=== PATIENT | male | born 1935 | race Caucasian/White ===

== ENCOUNTER 2020-11-14 05:34 | Emergency (ER) | payer MEDICARE, OTHER ==
--- NOTE | 2020-11-14 06:09 | EDM.PDOC ---
ED HPI GENERAL MEDICAL PROBLEM - General Chief Complaint: Genitourinary Problem Stated Complaint: CATHETER PLUGGED Time Seen by Provider: 11/14/20 05:50 Source of Information: Reports: Patient History Limitations: Reports: No Limitations - History of Present Illness INITIAL COMMENTS - FREE TEXT/NARRATIVE: This 85 yo male patient reports to the ED due to his urinary catheter being plugged. The patient reports he had a catheter placed on Monday due to gross hematuria and an expanded bladder. The patient reports he moved wrong and got the catheter pulled last night causing increased difficulties in draining his bladder. The patient reports he has an appointment with Dr. Buck on 12/09/20 in [place] for continued evaluation and management of his hematuria. The patient reports his bladder currently feels full and has had increased pain when sitting or lying down. The patient reports he has noticed increased comfort with standing. Onset: Today Duration: Hour(s):, Constant Location: Reports: Abdomen (lower abdominal pressure) Quality: Reports: Pressure Severity: Moderate Improves with: Reports: None Worsens with: Reports: None Context: Reports: Other Associated Symptoms: Reports: No Other Symptoms - Related Data Allergies Allergy/AdvReac Type Severity Reaction Status Date / Time No Known Allergies Allergy Unverified 11/04/20 08:00 Social & Family History - Tobacco Use Tobacco Use Status *Q: Former Tobacco User Used Tobacco, but Quit: Yes Month/Year Tobacco Last Used: 2004 - Caffeine Use Caffeine Use: Reports: Coffee - Recreational Drug Use Recreational Drug Use: No ED ROS GENERAL - Review of Systems Review Of Systems: Comprehensive ROS is negative, except as noted in HPI. ED EXAM, RENAL/ - Physical Exam Exam: See Below Exam Limited By: No Limitations General Appearance: Alert, WD/WN, Moderate Distress Eye Exam: Bilateral Eye: EOMI, Normal Inspection, PERRL Ears: Normal External Exam, Normal Canal, Hearing Grossly Normal, Normal TMs Nose: Normal Inspection, Normal Mucosa, No Blood Throat/Mouth: Normal Inspection, Normal Lips, Normal Teeth, Normal Gums, Normal Oropharynx, Normal Voice, No Airway Compromise Head: Atraumatic, Normocephalic Neck: Normal Inspection, Supple, Non-Tender, Full Range of Motion Respiratory/Chest: No Respiratory Distress, Lungs Clear, Normal Breath Sounds, No Accessory Muscle Use, Chest Non-Tender Cardiovascular: Normal Peripheral Pulses GI/Abdominal: Normal Bowel Sounds, Soft, Tender (lower abdomen) (Male) Exam: Other (Blood in the patient's catheter fluid would go into the catheter, but nothing would drain out after the flushing. ) Rectal (Males) Exam: Deferred Back Exam: Normal Inspection, Full Range of Motion, NT Extremities: Normal Inspection, Normal Range of Motion, Non-Tender, Normal Capillary Refill, No Pedal Edema Neurological: Alert, Oriented Psychiatric: Normal Affect, Normal Mood Skin Exam: Warm, Dry, Intact, Normal Color, No Rash Lymphatic: No Adenopathy Course - Vital Signs Last Recorded V/S: Last Vital Signs Temp 36.0 C L 11/14/20 05:45 Pulse 113 H 11/14/20 05:45 Resp 18 11/14/20 05:45 BP 163/87 H 11/14/20 05:45 Pulse Ox 97 11/14/20 05:45 Departure - Departure Time of Disposition: 06:24 Disposition: Home, Self-Care 01 Condition: Fair Clinical Impression: Gross hematuria, Urinary catheter (Nuñez) change required - Discharge Information *PRESCRIPTION DRUG MONITORING PROGRAM REVIEWED*: Not Applicable *COPY OF PRESCRIPTION DRUG MONITORING REPORT IN PATIENT CODY: Not Applicable Care Plan Goals: The patient was advised of the examination results during the visit. The patient's urinary catheter was replaced during the visit and was draining well. The patient was encouraged to follow-up with his primary care facility as needed. If the patient has any additional symptoms or concerns, the patient should either return to the emergency department or visit his primary care facility. Sepsis Event Note (ED) - Evaluation Sepsis Screening Result: No Definite Risk - Focused Exam Vital Signs: Vital Signs Temp Pulse Resp BP Pulse Ox 11/14/20 05:45 36.0 C L 113 H 18 163/87 H 97
== END 2020-11-14 06:30 | disposition home or self-care (01) ==
LOC: DL.ED 05:34
DX: R31.0 Gross hematuria (principal); Z46.6 Encounter for fitting and adjustment of urinary device; Z87.891 Personal history of nicotine dependence
CPT/HCPCS: 51702; 99282; 99283-25

== ENCOUNTER 2020-11-17 01:30 | Emergency (ER) | payer MEDICARE, OTHER ==
--- NOTE | 2020-11-17 02:04 | EDM.PDOC ---
ED HPI GENERAL MEDICAL PROBLEM - General Chief Complaint: Genitourinary Problem Stated Complaint: PLUGGED CATHETER Time Seen by Provider: 11/17/20 01:50 Source of Information: Reports: Patient History Limitations: Reports: No Limitations - History of Present Illness INITIAL COMMENTS - FREE TEXT/NARRATIVE: This 85 yo male patient reports to the ED with increased pressure in his lower abdomen and no urine output from his catheter. The patient was seen in the [facility] last week due to gross hematuria. The provider placed a catheter during that visit. The patient was seen near the end of the week due to his catheter being blocked (similar to today). During that visit, unsuccessful attempts were made to flush the catheter. Eventually, the catheter was replaced. The patient reports he did have about 1600 mL of urine out early yesterday morning, but really has not had anything out since that time. Onset: Today Duration: Constant Location: Reports: Abdomen Quality: Reports: Dull, Pressure Severity: Moderate Improves with: Reports: None Worsens with: Reports: None Context: Reports: Other Associated Symptoms: Reports: No Other Symptoms Penis Pain Score (Numeric/FACES): 1 - Related Data Allergies Allergy/AdvReac Type Severity Reaction Status Date / Time No Known Allergies Allergy Verified 11/14/20 06:07 Home Meds: Home Meds Cholecalciferol (Vitamin D3) [Vitamin D3] 400 unit PO DAILY 11/14/20 [History] Finasteride [Proscar] 5 mg PO DAILY 11/14/20 [History] Furosemide [Lasix] 20 mg PO DAILY 11/14/20 [History] Insulin Detemir [Levemir Flextouch] 12 unit SQ BID 11/14/20 [History] [place]-3 Acid Ethyl Esters [Lovaza] 1 gm PO DAILY 11/14/20 [History] Tamsulosin HCl [Flomax] 0.4 mg PO DAILY 11/14/20 [History] Ubidecarenone [Co Q-10] 10 mg PO DAILY 11/14/20 [History] Vitamin B Complex [B Complex] 1 each PO DAILY 11/14/20 [History] Vitamin E 400 unit PO DAILY 11/14/20 [History] Zinc Sulfate [Zinc] 50 mg PO DAILY 11/14/20 [History] metFORMIN [Glucophage] 1,000 mg PO BIDMEALS 11/14/20 [History] Past Medical History Cardiovascular History: Reports: Hypertension Genitourinary History: Reports: BPH, Retention, Urinary, Other (See Below) Other Genitourinary History: urinary distension, gross hematuria, obstructive uropathy Endocrine/Metabolic History: Reports: Diabetes, Type II - Past Surgical History GI Surgical History: Reports: Hernia Repair/Other Social & Family History - Caffeine Use Caffeine Use: Reports: Coffee ED ROS GENERAL - Review of Systems Review Of Systems: Comprehensive ROS is negative, except as noted in HPI. ED EXAM, RENAL/ - Physical Exam Exam: See Below Exam Limited By: No Limitations General Appearance: Alert, WD/WN, Mild Distress Eye Exam: Bilateral Eye: EOMI, Normal Inspection Ears: Normal External Exam, Hearing Grossly Normal Nose: Normal Inspection Throat/Mouth: Normal Inspection, Normal Lips, Normal Voice Head: Atraumatic, Normocephalic Neck: Normal Inspection, Supple, Non-Tender, Full Range of Motion Respiratory/Chest: No Respiratory Distress, Lungs Clear, Normal Breath Sounds, No Accessory Muscle Use, Chest Non-Tender Cardiovascular: Normal Peripheral Pulses, Regular Rate, Rhythm, No Edema, No Gallop, No JVD, No Murmur, No Rub GI/Abdominal: Normal Bowel Sounds, Soft, No Organomegaly, No Distention, No Abnormal Bruit, No Mass, Pelvis Stable, Tender (mild tenderness to the lower abdomen) (Male) Exam: Deferred Rectal (Males) Exam: Deferred Back Exam: Normal Inspection, Full Range of Motion, NT Extremities: Normal Inspection, Normal Range of Motion, Non-Tender, Pedal Edema Neurological: Alert, Oriented, CN II-XII Intact, Normal Cognition, Normal Gait, Normal Reflexes, No Motor/Sensory Deficits Psychiatric: Normal Affect, Normal Mood Skin Exam: Warm, Dry, Intact, Normal Color, No Rash Lymphatic: No Adenopathy Course - Vital Signs Last Recorded V/S: Last Vital Signs Temp 35.9 C L 11/17/20 01:38 Pulse 80 11/17/20 01:38 Resp 16 11/17/20 01:38 BP 179/122 H 11/17/20 01:38 Pulse Ox 98 11/17/20 01:38 Departure - Departure Time of Disposition: 02:21 Disposition: Home, Self-Care 01 Condition: Fair Clinical Impression: Gross hematuria, Urinary catheter (Nuñez) change required - Discharge Information *PRESCRIPTION DRUG MONITORING PROGRAM REVIEWED*: Not Applicable *COPY OF PRESCRIPTION DRUG MONITORING REPORT IN PATIENT CODY: Not Applicable Forms: ED Department Discharge Care Plan Goals: The patient was advised of the examination results during the visit. After unsuccessful attempts at flushing the patient's catheter, a new catheter was placed. The patient was encouraged to contact his primary care facility to inform them of the visits to the emergency department due to blood clots plu gging his catheter. The patient was encouraged to continue to take all of his medications as prescribed. If the patient has any additional symptoms or concerns, the patient should either return to the emergency department or visit his primary care facility. Sepsis Event Note (ED) - Evaluation Sepsis Screening Result: No Definite Risk - Focused Exam Vital Signs: Vital Signs Temp Pulse Resp BP Pulse Ox 11/17/20 01:38 35.9 C L 80 16 179/122 H 98
== END 2020-11-17 02:45 | disposition home or self-care (01) ==
LOC: DL.ED 01:30
DX: T83.091A Other mechanical complication of indwelling urethral catheter, initial encounter (principal); R31.0 Gross hematuria; E11.9 Type 2 diabetes mellitus without complications; I10 Essential (primary) hypertension; Z79.4 Long term (current) use of insulin; Z79.899 Other long term (current) drug therapy
CPT/HCPCS: 51702; 99283; 99283-25

== ENCOUNTER 2020-12-04 19:19 | Emergency (ER) | payer MEDICARE, OTHER ==
--- NOTE | 2020-12-04 21:44 | EDM.PDOC ---
ED HPI GENERAL MEDICAL PROBLEM - General Chief Complaint: Genitourinary Problem Stated Complaint: CATHEDER PROBLEMS Time Seen by Provider: 12/04/20 21:40 Source of Information: Reports: Patient History Limitations: Reports: No Limitations - History of Present Illness INITIAL COMMENTS - FREE TEXT/NARRATIVE: Patient comes emergency department today with complaints of urinary catheter problems. This patient has had a indwelling Nuñez catheter for about the last 3 weeks due to urinary retention and inability to void. He has had some prostate issues which is why the catheter has been in place. Has been seen in the emergency department twice in the past for a plugged catheter. Today he noticed that he had a little bit of increased pressure in the suprapubic region and he had some urine leaking from around the end of his penis. He was worried that his catheter was misplaced. He has had no fever no chills. No cough congestion shortness of breath. His urine has been noticed to be a little bit darker and almost appears to have some blood in it. No fever no chills. - Related Data Allergies Allergy/AdvReac Type Severity Reaction Status Date / Time No Known Allergies Allergy Verified 12/04/20 22:03 Home Meds: Home Meds Cholecalciferol (Vitamin D3) [Vitamin D3] 400 unit PO DAILY 11/14/20 [History] Finasteride [Proscar] 5 mg PO DAILY 11/14/20 [History] Furosemide [Lasix] 20 mg PO DAILY 11/14/20 [History] Insulin Detemir [Levemir Flextouch] 12 unit SQ BID 11/14/20 [History] [place]-3 Acid Ethyl Esters [Lovaza] 1 gm PO DAILY 11/14/20 [History] Tamsulosin HCl [Flomax] 0.4 mg PO DAILY 11/14/20 [History] Ubidecarenone [Co Q-10] 10 mg PO DAILY 11/14/20 [History] Vitamin B Complex [B Complex] 1 each PO DAILY 11/14/20 [History] Vitamin E 400 unit PO DAILY 11/14/20 [History] Zinc Sulfate [Zinc] 50 mg PO DAILY 11/14/20 [History] metFORMIN [Glucophage] 1,000 mg PO BIDMEALS 11/14/20 [History] Past Medical History - Past Health History Medical/Surgical History: Denies Medical/Surgical History HEENT History: Reports: Impaired Vision Cardiovascular History: Reports: Hypertension Genitourinary History: Reports: BPH, Retention, Urinary, Other (See Below) Other Genitourinary History: urinary distension, gross hematuria, obstructive uropathy Endocrine/Metabolic History: Reports: Diabetes, Type II - Past Surgical History GI Surgical History: Reports: Hernia Repair/Other Social & Family History - Caffeine Use Caffeine Use: Reports: None ED ROS GENERAL - Review of Systems Review Of Systems: Comprehensive ROS is negative, except as noted in HPI. ED EXAM, RENAL/ - Physical Exam Exam: See Below Text/Narrative:: This patient's catheter is in place he does have a small amount of urine leaking from the end of his penis although the catheter leg bag is absolutely full stretch to the max and about ready to explode. The catheter is still full urine as well to his penis.. There is some maroon-colored urine in the catheter. Exam Limited By: No Limitations General Appearance: Alert, WD/WN, No Apparent Distress Respiratory/Chest: No Respiratory Distress Cardiovascular: Normal Peripheral Pulses, Regular Rate, Rhythm GI/Abdominal: Normal Bowel Sounds, Soft, Tender (Mid suprapubic tendernss. Bladder scan after emptying the absolutely full and about nusting leg bag is 80 mls. ) (Male) Exam: No Hernia, Other (Unremarkable other than a small amout of urine in his brief. ) Back Exam: Normal Inspection, Full Range of Motion. No: CVA Tenderness (L), CVA Tenderness (R) Extremities: Pedal Edema (2+ bilaterally. ) Neurological: Alert, Oriented Psychiatric: Normal Affect, Normal Mood Skin Exam: Warm, Dry, Intact, Normal Color, No Rash Course - Vital Signs Last Recorded V/S: Last Vital Signs Temp 99.2 F 12/04/20 22:38 Pulse 86 12/04/20 20:50 Resp 20 12/04/20 20:50 BP 190/90 H 12/04/20 20:50 Pulse Ox 98 12/04/20 20:50 - Orders/Labs/Meds Orders: Active Orders 24 hr Category Date Time Status Nuñez Catheter Insertion [Insert Urinary Catheter] [OM. Care 12/04/20 21:45 Ordered PC] Q24H CULTURE URINE [RM] Stat Lab 12/04/20 22:00 Received Labs: Laboratory Tests 12/04/20 Range/Units 22:00 Urine Color [place] (YELLOW) Urine Appearance Turbid (CLEAR) Urine pH 7.5 (5.0-9.0) Ur Specific [place] 1.020 (1.005-1.030) Urine Protein >=300 H (NEGATIVE) Urine Glucose (UA) >=1000 H (NEGATIVE) Urine Ketones Negative (NEGATIVE) Urine Occult Blood Large H (NEGATIVE) Urine Nitrite Negative (NEGATIVE) Urine Bilirubin Negative (NEGATIVE) Urine Urobilinogen 1.0 (0.2-1.0) mg/dL Ur Leukocyte Esterase Small H (NEGATIVE) Urine RBC >100 H /HPF Urine WBC >100 H (0-5/HPF) /HPF Ur Epithelial Cells Few (NOT SEEN) /HPF Amorphous Sediment Few (NOT SEEN) /HPF Urine Bacteria Moderate H (0-FEW/HPF) /HPF Urine Mucus Few H (NOT SEEN) /LPF Meds: Medications Discontinued Medications Generic Name Dose Route Start Last Admin Trade Name Freq PRN Reason Stop Dose Admin Cephalexin 500 mg 12/04/20 22:24 12/04/20 22:37 Cephalexin 500 Mg Cap PO 12/04/20 22:25 500 mg ONETIME ONE Administration - Re-Assessments/Exams Free Text/Narrative Re-Assessment/Exam: 12/04/20 22:07 After his absolutely full and about exploding leg bag was emptied we replaced the catheter as it has been in for weeks and a urine sample was obtained and sent to the lab. He clearly has a rather impressive urinary tract infection at this time. Packed U RBCs packed U WBCs. He was started on Keflex in the emergency department. We will continue this for the next 7 days. I also have quite a bit of concern of the patient's ability to care for his catheter at home. He has been in the emergency department multiple times for blood catheters as well as his presentation tonight with a very discussing the poor hygiene area in the periregion nurses spent quite a bit of time educating him on appropriate cathete r care. I would like him to have home health come and assist him with his daily catheter cares as well he will have to contact his primary care provider on Monday. Urine culture pending. Departure - Departure Time of Disposition: 22:25 Disposition: Home, Self-Care Clinical Impression: UTI (urinary tract infection) due to urinary indwelling Nuñez catheter Qualifiers: Indwelling urinary catheter type: indwelling urethral catheter Encounter type: initial encounter Qualified Code(s): T83.511A - Infection and inflammatory reaction due to indwelling urethral catheter, initial encounter - Discharge Information Instructions: Indwelling Urinary Catheter Care, Adult, Urinary Tract Infection, Adult, [id number] Referrals: PCP,None [Primary Care Provider] - Forms: ED Department Discharge Additional Instructions: Make sure that you are emptying your catheter bag multiple times throughout the day. Cephalexin 1 capsule 4 times a day for the next 7 days. Return to the ED if new or worsening symptoms. Follow up with PCP in the next week for recheck. Contact your PCP on monday and have them refer home health to assist with your catheter cares at home. Sepsis Event Note (ED) - Focused Exam Vital Signs: Vital Signs Temp Pulse Resp BP Pulse Ox 12/04/20 22:38 99.2 F 12/04/20 20:50 97.8 F 86 20 190/90 H 98 - My Orders Last 24 Hours: My Active Orders 12/04/20 21:45 Nuñez Catheter Insertion [Insert Urinary Catheter] [OM.PC] Q24H 12/04/20 22:00 CULTURE URINE [RM] Stat - Assessment/Plan Last 24 Hours: My Active Orders 12/04/20 21:45 Nuñez Catheter Insertion [Insert Urinary Catheter] [OM.PC] Q24H 12/04/20 22:00 CULTURE URINE [RM] Stat
[2020-12-04] MEDS ORDERED: Cephalexin 500 MG Cap PO ONE (22:24)
== END 2020-12-04 22:45 | disposition home or self-care (01) ==
LOC: DL.ED 19:19
DX: T83.511A Infection and inflammatory reaction due to indwelling urethral catheter, initial encounter (principal); N39.0 Urinary tract infection, site not specified; E11.9 Type 2 diabetes mellitus without complications; I10 Essential (primary) hypertension; Z79.4 Long term (current) use of insulin
CPT/HCPCS: 51702; 51798; 81001; 87086; 87088; 87186; 99283; 99283-25; A9270-GY

== ENCOUNTER 2020-12-06 15:59 | Observation (INO) | payer MEDICARE, OTHER ==
[2020-12-06 17:08] LABS: CORONAVIRUS COVID-19 NAA NEGATIVE (NEGATIVE)
[2020-12-06 17:24] LABS: ANION GAP 11.6 mEq/L (7-13); CHLORIDE,CL 99 mmol/L (98-107); SODIUM,NA 134 mmol/L (136-145)
[2020-12-06] MEDS ORDERED: cefTRIAXone 1 GM in Sodium Chloride 0.9% 50 ML IV ONE (17:58)
--- NOTE | 2020-12-06 17:58 | EDM.PDOC ---
Scribed by Lubna Key 12/06/20 1727 for Casi Jasmine NP ED HPI GENERAL MEDICAL PROBLEM - General Chief Complaint: General Stated Complaint: AMBULANCE Time Seen by Provider: 12/06/20 16:15 Source of Information: Reports: Patient, EMS, EMS Notes Reviewed, RN, RN Notes Reviewed History Limitations: Reports: No Limitations - History of Present Illness INITIAL COMMENTS - FREE TEXT/NARRATIVE: Patient is an 85-year-old male who presents to ER per [facility] with complaint of weakness and chills today. States he was seen in the ER a few days ago and diagnosed with UTI. He was put on Cefdinir. He states his antibiotics were not filled so he has not taken any oral antibiotics. Today he had chills but denies fever. Denies nausea, vomiting or diarrhea. States he is so weak he could not get up on his own, needed assistance. Onset: Gradual Duration: Getting Worse Location: Reports: Generalized Severity: Severe Improves with: Reports: None Worsens with: Reports: None Associated Symptoms: Reports: No Other Symptoms - Related Data Allergies Allergy/AdvReac Type Severity Reaction Status Date / Time No Known Allergies Allergy Verified 12/06/20 16:14 Home Meds: Home Meds Cholecalciferol (Vitamin D3) [Vitamin D3] 400 unit PO DAILY 11/14/20 [History] Finasteride [Proscar] 5 mg PO DAILY 11/14/20 [History] Furosemide [Lasix] 20 mg PO DAILY 11/14/20 [History] Insulin Detemir [Levemir Flextouch] 12 unit SQ BID 11/14/20 [History] [place]-3 Acid Ethyl Esters [Lovaza] 1 gm PO DAILY 11/14/20 [History] Tamsulosin HCl [Flomax] 0.4 mg PO DAILY 11/14/20 [History] Ubidecarenone [Co Q-10] 10 mg PO DAILY 11/14/20 [History] Vitamin B Complex [B Complex] 1 each PO DAILY 11/14/20 [History] Vitamin E 400 unit PO DAILY 11/14/20 [History] Zinc Sulfate [Zinc] 50 mg PO DAILY 11/14/20 [History] metFORMIN [Glucophage] 1,000 mg PO BIDMEALS 11/14/20 [History] Past Medical History - Past Health History Medical/Surgical History: Denies Medical/Surgical History HEENT History: Reports: Impaired Vision Cardiovascular History: Reports: Hypertension Genitourinary History: Reports: BPH, Retention, Urinary, Other (See Below) Other Genitourinary History: urinary distension, gross hematuria, obstructive uropathy Endocrine/Metabolic History: Reports: Diabetes, Type II - Past Surgical History GI Surgical History: Reports: Hernia Repair/Other Social & Family History - Family History Family Medical History: No Pertinent Family History - Tobacco Use Tobacco Use Status *Q: Unknown Ever Used Tobacco - Caffeine Use Caffeine Use: Reports: None - Recreational Drug Use Recreational Drug Use: No ED ROS GENERAL - Review of Systems Review Of Systems: Comprehensive ROS is negative, except as noted in HPI. ED EXAM, GENERAL - Physical Exam Exam: See Below Exam Limited By: No Limitations General Appearance: Other (weak and tired) Eye Exam: Bilateral Eye: Other (edema to the upper eyelid) Ears: Other (hard of hearing) Nose: Normal Inspection, Normal Mucosa, No Blood Throat/Mouth: Normal Inspection, Normal Lips, Normal Teeth, Normal Gums, Normal Oropharynx, Normal Voice, No Airway Compromise Head: Atraumatic, Normocephalic Neck: Normal Inspection, Supple, Non-Tender, Full Range of Motion Respiratory/Chest: Crackles (bases bilaterally) Cardiovascular: Normal Peripheral Pulses, Regular Rate, Rhythm, No Edema, No G allop, No JVD, No Murmur, No Rub GI/Abdominal: Normal Bowel Sounds, Soft, Non-Tender, No Organomegaly, No Distention, No Abnormal Bruit, No Mass (Male) Exam: Deferred Rectal (Males) Exam: Deferred Back Exam: Normal Inspection, Full Range of Motion, NT Extremities: Other (weakness) Neurological: Alert, Oriented, CN II-XII Intact, Normal Cognition, Normal Gait, Normal Reflexes, No Motor/Sensory Deficits Psychiatric: Normal Affect, Normal Mood Skin Exam: Other (pitting +2 to +3 lower extremity edema) Lymphatic: No Adenopathy Course - Vital Signs Last Recorded V/S: Last Vital Signs Temp 99 F 12/06/20 16:11 Pulse 83 12/06/20 16:11 Resp 16 12/06/20 16:11 BP 173/69 H 12/06/20 16:11 Pulse Ox 94 L 12/06/20 16:11 - Orders/Labs/Meds Orders: Active Orders 24 hr Category Date Time Status Admission Diagnosis [ADT] Stat ADT 12/06/20 17:54 Ordered Admission Status [Patient Status] [ADT] Routine ADT 12/06/20 17:54 Ordered CULTURE BLOOD [BC] Stat Lab 12/06/20 16:50 Received CULTURE BLOOD [BC] Stat Lab 12/06/20 16:55 Received CULTURE URINE [RM] Stat Lab 12/06/20 17:20 Received Blood Culture x2 Reflex Set [OM.PC] Stat Oth 12/06/20 17:34 Ordered Labs: Laboratory Tests 12/06/20 12/06/20 12/06/20 Range/Units 16:15 16:50 16:50 WBC 12.5 H (5.0-10.0) 10^3/uL RBC 4.56 L (4.6-6.2) 10^6/uL Hgb 13.2 L (14.0-18.0) g/dL Hct 39.6 L (40.0-54.0) % MCV 86.8 (80-100) fL MCH 28.9 (27.0-34.0) pg MCHC 33.3 (33.0-35.0) g/dL Plt Count 241 (150-450) 10^3/uL Neut % (Auto) (42.2-75.2) % Add Manual Diff Yes Neutrophils % (Manual) 79 H (42-75) % Lymphocytes % (Manual) 6 L (20-50) % Monocytes % (Manual) 14 H (2-8) % Basophils % (Manual) 1 Sodium 134 L (136-145) mmol/L Potassium 3.6 (3.5-5.1) mmol/L Chloride 99 (98-107) mmol/L Carbon Dioxide 27 (21-32) mmol/L Anion Gap 11.6 (7-13) mEq/L BUN 18 (7-18) mg/dL Creatinine 1.12 (0.70-1.30) mg/dL Est Cr Clr Drug Dosing TNP Estimated GFR (MDRD) > 60 BUN/Creatinine Ratio 16.1 (No establ ref range) Glucose 285 H (70-99) mg/dL Lactic Acid (0.4-2.0) mmol/L Calcium 8.1 L (8.5-10.1) mg/dL Total Bilirubin 0.8 (0.2-1.0) mg/dL AST 12 L (15-37) U/L ALT 18 (16-63) U/L Alkaline Phosphatase 73 (46-116) U/L B-Natriuretic Peptide 281 H (0-100) pg/ml Total Protein 6.6 (6.4-8.2) g/dL Albumin 3.1 L (3.4-5.0) g/dL Globulin 3.5 Albumin/Globulin Ratio 0.89 Urine Color (YELLOW) Urine Appearance (CLEAR) Urine pH (5.0-9.0) Ur Specific Violet (1.005-1.030) Urine Protein (NEGATIVE) Urine Glucose (UA) (NEGATIVE) Urine Ketones (NEGATIVE) Urine Occult Blood (NEGATIVE) Urine Nitrite (NEGATIVE) Urine Bilirubin (NEGATIVE) Urine Urobilinogen (0.2-1.0) mg/dL Ur Leukocyte Esterase (NEGATIVE) Urine RBC /HPF Urine WBC (0-5/HPF) /HPF Ur Epithelial Cells (NOT SEEN) /HPF Urine Bacteria (0-FEW/HPF) /HPF Influenza Type A RNA Negative (NEGATIVE) Influenza Type B RNA Negative (NEGATIVE) SARS-CoV-2 RNA (KEIRA) Negative (NEGATIVE) 12/06/20 12/06/20 Range/Units 16:50 17:20 WBC (5.0-10.0) 10^3/uL RBC (4.6-6.2) 10^6/uL Hgb (14.0-18.0) g/dL Hct (40.0-54.0) % MCV (80-100) fL MCH (27.0-34.0) pg MCHC (33.0-35.0) g/dL Plt Count (150-450) 10^3/uL Neut % (Auto) (42.2-75.2) % Add Manual Diff Neutrophils % (Manual) (42-75) % Lymphocytes % (Manual) (20-50) % Monocytes % (Manual) (2-8) % Basophils % (Manual) Sodium (136-145) mmol/L Potassium (3.5-5.1) mmol/L Chloride (98-107) mmol/L Carbon Dioxide (21-32) mmol/L Anion Gap (7-13) mEq/L BUN (7-18) mg/dL Creatinine (0.70-1.30) mg/dL Est Cr Clr Drug Dosing Estimated GFR (MDRD) BUN/Creatinine Ratio (No establ ref range) Glucose (70-99) mg/dL Lactic Acid 1.0 (0.4-2.0) mmol/L Calcium (8.5-10.1) mg/dL Total Bilirubin (0.2-1.0) mg/dL AST (15-37) U/L ALT (16-63) U/L Alkaline Phosphatase (46-116) U/L B-Natriuretic Peptide (0-100) pg/ml Total Protein (6.4-8.2) g/dL Albumin (3.4-5.0) g/dL Globulin Albumin/Globulin Ratio Urine Color Yellow (YELLOW) Urine Appearance Clear (CLEAR) Urine pH 6.5 (5.0-9.0) Ur Specific Violet 1.015 (1.005-1.030) Urine Protein 100 H (NEGATIVE) Urine Glucose (UA) 500 H (NEGATIVE) Urine Ketones 15 H (NEGATIVE) Urine Occult Blood Moderate H (NEGATIVE) Urine Nitrite Positive H (NEGATIVE) Urine Bilirubin Negative (NEGATIVE) Urine Urobilinogen 1.0 (0.2-1.0) mg/dL Ur Leukocyte Esterase Trace H (NEGATIVE) Urine RBC 10-20 H /HPF Urine WBC 5-10 H (0-5/HPF) /HPF Ur Epithelial Cells Rare (NOT SEEN) /HPF Urine Bacteria Many H (0-FEW/HPF) /HPF Influenza Type A RNA (NEGATIVE) Influenza Type B RNA (NEGATIVE) SARS-CoV-2 RNA (KEIRA) (NEGATIVE) - Re-Assessments/Exams Free Text/Narrative Re-Assessment/Exam: 12/06/20 17:56 Patient case discussed with Dr. Javier who agreed to accept the patient for observation admission. Departure - Departure Time of Disposition: 17:57 Disposition: Refer to Observation Condition: Fair Clinical Impression: Weakness UTI (urinary tract infection) Qualifiers: Urinary tract infection type: site unspecified Hematuria presence: without hematuria Qualified Code(s): N39.0 - Urinary tract infection, site not specified - Discharge Information *PRESCRIPTION DRUG MONITORING PROGRAM REVIEWED*: No *COPY OF PRESCRIPTION DRUG MONITORING REPORT IN PATIENT CODY: No Forms: ED Department Discharge Sepsis Event Note (ED) - Evaluation Sepsis Screening Result: No Definite Risk - Focused Exam Vital Signs: Vital Signs Temp Pulse Resp BP Pulse Ox 12/06/20 16:11 99 F 83 16 173/69 H 94 L - My Orders Last 24 Hours: My Active Orders 12/06/20 16:50 CULTURE BLOOD [BC] Stat 12/06/20 16:55 CULTURE BLOOD [BC] Stat 12/06/20 17:20 CULTURE URINE [RM] Stat 12/06/20 17:34 Blood Culture x2 Reflex Set [OM.PC] Stat 12/06/20 17:54 Admission Diagnosis [ADT] Stat Admission Status [Patient Status] [ADT] Routine - Assessment/Plan Last 24 Hours: My Active Orders 12/06/20 16:50 CULTURE BLOOD [BC] Stat 12/06/20 16:55 CULTURE BLOOD [BC] Stat 12/06/20 17:20 CULTURE URINE [RM] Stat 12/06/20 17:34 Blood Culture x2 Reflex Set [OM.PC] Stat 12/06/20 17:54 Admission Diagnosis [ADT] Stat Admission Status [Patient Status] [ADT] Routine I have read and agree with the documentation that has been completed regarding this visit. By signing this record, I attest that the documentation was completed in my physical presence and is an accurate record of the encounter.
[2020-12-06] MEDS ORDERED: Glucagon,Human Recombinant 1 MG Vial IM PRN (18:56)
[2020-12-06] MEDS ORDERED: 50% Dextrose in Water 50 ML Syringe IV PRN (18:56)
--- NOTE | 2020-12-06 19:04 | PCM.HP ---
H&P History of Present Illness - General Date of Service: 12/06/20 Admit Problem/Dx: Admission Diagnosis/Problem Admission Diagnosis/Problem UTI (urinary tract infection) due to urinary indwelling catheter - History of Present Illness Initial Comments - Free Text/Narative: 85M w/ pmh HT, DM2, BPH, indwelling mercado cath for appx 1 mo now p/w weakness. Pt was seen in the ED two days ago for leaking mercado cath. Turns out the leg bag was extremely fool and so urine was leaking around the catheter. Pt was also noted w/ a UTI, given ceftriaxone and prescribed an oral cephalosporin. He went home w/ a referral for VNS. He never managed to fill the prescription for antibiotics. This am he reported shaking chills. Family called the ambulance since pt was very weak and family could not manage him. Denies any abd pain or measurable fever. No nausea, vomiting, diarrhea or cough. There is discharge noted around the mercado cath. Last ER visit pt was also noted w/ poor per-g enital hygiene and was educated on mercado care. Per ER provider mercado was changed. Pt also notes he is pending for a urologic procedure in 3 days in [place]. - Related Data Allergies/Adverse Reactions: Allergies Allergy/AdvReac Type Severity Reaction Status Date / Time No Known Allergies Allergy Verified 12/06/20 16:14 Home Medications: Home Meds Cholecalciferol (Vitamin D3) [Vitamin D3] 400 unit PO DAILY 11/14/20 [History] Finasteride [Proscar] 5 mg PO DAILY 11/14/20 [History] Furosemide [Lasix] 20 mg PO DAILY 11/14/20 [History] Insulin Detemir [Levemir Flextouch] 12 unit SQ BID 11/14/20 [History] [place]-3 Acid Ethyl Esters [Lovaza] 1 gm PO DAILY 11/14/20 [History] Tamsulosin HCl [Flomax] 0.4 mg PO DAILY 11/14/20 [History] Ubidecarenone [Co Q-10] 10 mg PO DAILY 11/14/20 [History] Vitamin B Complex [B Complex] 1 each PO DAILY 11/14/20 [History] Vitamin E 400 unit PO DAILY 11/14/20 [History] Zinc Sulfate [Zinc] 50 mg PO DAILY 11/14/20 [History] metFORMIN [Glucophage] 1,000 mg PO BIDMEALS 11/14/20 [History] Past Medical History - Past Health History Medical/Surgical History: Denies Medical/Surgical History HEENT History: Reports: Impaired Vision Cardiovascular History: Reports: Hypertension Genitourinary History: Reports: BPH, Retention, Urinary, Other (See Below) Other Genitourinary History: urinary distension, gross hematuria, obstructive uropathy Endocrine/Metabolic History: Reports: Diabetes, Type II - Past Surgical History GI Surgical History: Reports: Hernia Repair/Other Social & Family History - Family History Family Medical History: No Pertinent Family History - Tobacco Use Tobacco Use Status *Q: Unknown Ever Used Tobacco - Caffeine Use Caffeine Use: Reports: None - Recreational Drug Use Recreational Drug Use: No H&P Review of Systems - Review of Systems: Review Of Systems: See Below General: Reports: Chills, Weakness. Denies: Fever HEENT: Denies: Headaches Pulmonary: Denies: Shortness of Breath Cardiovascular: Denies: Chest Pain Gastrointestinal: Denies: Abdominal Pain, Diarrhea, Nausea, Vomiting Genitourinary: Reports: Discharge, Retention. Denies: Dysuria, Hematuria Musculoskeletal: Denies: Neck Pain Skin: Denies: Jaundice Psychiatric: Denies: Confusion Neurological: Denies: Dizziness Hematologic/Lymphatic: Denies: Easy Bleeding Exam - Exam Exam: See Below - Vital Signs Vital Signs: Last Vital Signs Temp 99 F 12/06/20 18:43 Pulse 77 12/06/20 18:43 Resp 18 12/06/20 18:43 BP 154/69 H 12/06/20 18:43 Pulse Ox 96 12/06/20 18:43 Weight: 189 lb 12.8 oz - Exam Quality Assessment: No: Supplemental Oxygen General: Alert, Oriented HEENT: Conjunctiva Clear, Other (hard of hearing) Neck: Supple Lungs: Clear to Auscultation Cardiovascular: Regular Rate, Regular Rhythm GI/Abdominal Exam: Normal Bowel Sounds, Soft, Non-Tender, No Distention (Male) Exam: Urethral Discharge, Other (mercado in place) Back Exam: Normal Inspection. No: CVA Tenderness (L), CVA Tenderness (R) Extremities: Normal Inspection, Other (2+ b/l LE edema) Skin: Warm, Dry, Intact Neurological: Cranial Nerves Intact Neuro Extensive - Mental Status: Alert, Oriented x3 Neuro Extensive - Motor, Sensory, Reflexes: No: Tremor Psychiatric: Alert, Normal Affect, Normal Mood - Patient Data Lab Results Last 24 hrs: Laboratory Results - last 24 hr 12/06/20 12/06/20 12/06/20 Range/Units 16:15 16:50 16:50 WBC 12.5 H (5.0-10.0) 10^3/uL RBC 4.56 L (4.6-6.2) 10^6/uL Hgb 13.2 L (14.0-18.0) g/dL Hct 39.6 L (40.0-54.0) % MCV 86.8 (80-100) fL MCH 28.9 (27.0-34.0) pg MCHC 33.3 (33.0-35.0) g/dL Plt Count 241 (150-450) 10^3/uL Neut % (Auto) (42.2-75.2) % Add Manual Diff Yes Neutrophils % (Manual) 79 H (42-75) % Lymphocytes % (Manual) 6 L (20-50) % Monocytes % (Manual) 14 H (2-8) % Basophils % (Manual) 1 Sodium 134 L (136-145) mmol/L Potassium 3.6 (3.5-5.1) mmol/L Chloride 99 (98-107) mmol/L Carbon Dioxide 27 (21-32) mmol/L Anion Gap 11.6 (7-13) mEq/L BUN 18 (7-18) mg/dL Creatinine 1.12 (0.70-1.30) mg/dL Est Cr Clr Drug Dosing TNP Estimated GFR (MDRD) > 60 BUN/Creatinine Ratio 16.1 (No establ ref range) Glucose 285 H (70-99) mg/dL Lactic Acid (0.4-2.0) mmol/L Calcium 8.1 L (8.5-10.1) mg/dL Total Bilirubin 0.8 (0.2-1.0) mg/dL AST 12 L (15-37) U/L ALT 18 (16-63) U/L Alkaline Phosphatase 73 (46-116) U/L B-Natriuretic Peptide 281 H (0-100) pg/ml Total Protein 6.6 (6.4-8.2) g/dL Albumin 3.1 L (3.4-5.0) g/dL Globulin 3.5 Albumin/Globulin Ratio 0.89 Urine Color (YELLOW) Urine Appearance (CLEAR) Urine pH (5.0-9.0) Ur Specific Fowler (1.005-1.030) Urine Protein (NEGATIVE) Urine Glucose (UA) (NEGATIVE) Urine Ketones (NEGATIVE) Urine Occult Blood (NEGATIVE) Urine Nitrite (NEGATIVE) Urine Bilirubin (NEGATIVE) Urine Urobilinogen (0.2-1.0) mg/dL Ur Leukocyte Esterase (NEGATIVE) Urine RBC /HPF Urine WBC (0-5/HPF) /HPF Ur Epithelial Cells (NOT SEEN) /HPF Urine Bacteria (0-FEW/HPF) /HPF Influenza Type A RNA Negative (NEGATIVE) Influenza Type B RNA Negative (NEGATIVE) SARS-CoV-2 RNA (KEIRA) Negative (NEGATIVE) 12/06/20 12/06/20 Range/Units 16:50 17:20 WBC (5.0-10.0) 10^3/uL RBC (4.6-6.2) 10^6/uL Hgb (14.0-18.0) g/dL Hct (40.0-54.0) % MCV (80-100) fL MCH (27.0-34.0) pg MCHC (33.0-35.0) g/dL Plt Count (150-450) 10^3/uL Neut % (Auto) (42.2-75.2) % Add Manual Diff Neutrophils % (Manual) (42-75) % Lymphocytes % (Manual) (20-50) % Monocytes % (Manual) (2-8) % Basophils % (Manual) Sodium (136-145) mmol/L Potassium (3.5-5.1) mmol/L Chloride (98-107) mmol/L Carbon Dioxide (21-32) mmol/L Anion Gap (7-13) mEq/L BUN (7-18) mg/dL Creatinine (0.70-1.30) mg/dL Est Cr Clr Drug Dosing Estimated GFR (MDRD) BUN/Creatinine Ratio (No establ ref range) Glucose (70-99) mg/dL Lactic Acid 1.0 (0.4-2.0) mmol/L Calcium (8.5-10.1) mg/dL Total Bilirubin (0.2-1.0) mg/dL AST (15-37) U/L ALT (16-63) U/L Alkaline Phosphatase (46-116) U/L B-Natriuretic Peptide (0-100) pg/ml Total Protein (6.4-8.2) g/dL Albumin (3.4-5.0) g/dL Globulin Albumin/Globulin Ratio Urine Color Yellow (YELLOW) Urine Appearance Clear (CLEAR) Urine pH 6.5 (5.0-9.0) Ur Specific Fowler 1.015 (1.005-1.030) Urine Protein 100 H (NEGATIVE) Urine Glucose (UA) 500 H (NEGATIVE) Urine Ketones 15 H (NEGATIVE) Urine Occult Blood Moderate H (NEGATIVE) Urine Nitrite Positive H (NEGATIVE) Urine Bilirubin Negative (NEGATIVE) Urine Urobilinogen 1.0 (0.2-1.0) mg/dL Ur Leukocyte Esterase Trace H (NEGATIVE) Urine RBC 10-20 H /HPF Urine WBC 5-10 H (0-5/HPF) /HPF Ur Epithelial Cells Rare (NOT SEEN) /HPF Urine Bacteria Many H (0-FEW/HPF) /HPF Influenza Type A RNA (NEGATIVE) Influenza Type B RNA (NEGATIVE) SARS-CoV-2 RNA (KEIRA) (NEGATIVE) Result Diagrams: 12/06/20 16:50 12/06/20 16:50 Problem List Initiated/Reviewed/Updated: Yes Orders Last 24hrs: Active Orders 24 hr Category Date Time Status Admission Diagnosis [ADT] Stat ADT 12/06/20 17:54 Ordered Admission Status [Patient Status] [ADT] Routine ADT 12/06/20 17:54 Active Patient Status [ADT] Routine ADT 12/06/20 18:47 Active Blood Glucose Check, Bedside [RC] WITHMEALSANDBED Care 12/06/20 18:56 Ordered Insert Mercado Catheter [Insert Urinary Catheter] [OM.PC] Care 12/06/20 19:00 Ordered Q24H Oxygen Therapy [RC] PRN Care 12/06/20 18:47 Active Urinary Catheter Assessment [RC] ASDIRECTED Care 12/06/20 18:50 Active VTE/DVT Education [RC] PER UNIT ROUTINE Care 12/06/20 18:47 Active Vital Signs [RC] Q4H Care 12/06/20 18:47 Active 2 Gram Sodium Diet [DIET] Diet 12/06/20 Breakfast Active CULTURE BLOOD [BC] Stat Lab 12/06/20 16:50 Received CULTURE BLOOD [BC] Stat Lab 12/06/20 16:55 Received CULTURE URINE [RM] Stat Lab 12/06/20 17:20 Received UA RFX DARRION AND CULT IF INDIC [URIN] Stat Lab 12/06/20 18:51 Ordered Acetaminophen [TylenoL] Med 12/06/20 18:47 Active 650 mg PO Q4H PRN Dextrose 50% in Water Med 12/06/20 18:56 Ordered 50 ml IV Q15M PRN Finasteride [Proscar] Med 12/07/20 09:00 Active 5 mg PO DAILY Furosemide [Lasix] Med 12/07/20 09:00 Active 20 mg PO DAILY Glucagon,Human Recombinant [GlucaGen] Med 12/06/20 18:56 Ordered 1 mg IM Q15M PRN Heparin Sodium Med 12/06/20 22:00 Active 5,000 units SUBCUT Q8HR Insulin Detemir Med 12/06/20 21:00 Active 12 unit SQ BID Insulin Lispro [HumaLOG] Med 12/06/20 21:00 Ordered See Protocol SUBCUT WITHMEALSANDBED Tamsulosin [Flomax] Med 12/07/20 09:00 Active 0.4 mg PO DAILY cefTRIAXone [Rocephin] 1 gm Med 12/07/20 17:00 Active Sodium Chloride 0.9% [Normal Saline] 50 ml IV Q24H Blood Culture x2 Reflex Set [OM.PC] Stat Oth 12/06/20 17:34 Ordered Resuscitation Status Routine Resus Stat 12/06/20 18:47 Ordered Medication Orders Acetaminophen (Acetaminophen 325 Mg Tab) 650 mg PO Q4H PRN PRN Reason: Pain (Mild 1-3)/fever Dextrose/Water (50% Dextrose In Water 50 Ml Syringe) 50 ml IV Q15M PRN PRN Reason: Hypoglycemia Finasteride (Finasteride 5 Mg Tab) 5 mg PO DAILY NELL Furosemide (Furosemide 20 Mg Tab) 20 mg PO DAILY NELL Glucagon (Glucagon,Human Recombinant 1 Mg Vial) 1 mg IM Q15M PRN PRN Reason: Hypoglycemia Heparin Sodium (Porcine) (Heparin Sodium 5,000 Units/Ml Vial) 5,000 units SUBCUT Q8HR NELL Ceftriaxone Sodium 1 gm/ (Sodium Chloride) 50 mls @ 100 mls/hr IV Q24H NELL Insulin Human Lispro (Insulin Lispro 100 Units/Ml 3 Ml Vial) 0 unit SUBCUT WITHMEALSANDBED NELL; Protocol Non-Formulary Medication (Insulin Detemir) 12 unit SQ BID NELL Tamsulosin HCl (Tamsulosin 0.4 Mg Cap.Er) 0.4 mg PO DAILY [facility] Assessment/Plan Comment:: #catheter associated UTI - present on admission - replace mercado - re-culture via catheterization when re-placing the catheter - f/up original urine cultures from 2 days ago - c/w ceftriaxone #HT / BPH / DM2 - c/w home meds PPX - [facility]
[2020-12-06] MEDS ORDERED: Non-Formulary Medication 1 Each (Insulin Detemir 100 UNIT/ML Insuln.Pen) SQ SCH (21:00)
[2020-12-06] MEDS ORDERED: Heparin Sodium 5,000 Units/ML Vial SUBCUT SCH (22:00)
[2020-12-06] MEDS: Insulin Glarg,Human.Rec.Analog 100 Unit/ML SUBCUT SCH (22:51)
[2020-12-06] MEDS: Acetaminophen 325 MG Tab PO PRN (23:49)
[2020-12-06] MEDS: Insulin Lispro 100 Units/ML 3 ML Vial SUBCUT SCH (23:50)
[2020-12-07] MEDS ORDERED: Acetaminophen 325 MG Tab PO ONE (00:47)
[2020-12-07] MEDS: Insulin Lispro 100 Units/ML 3 ML Vial SUBCUT SCH ×4 (08:29→21:28)
[2020-12-07] MEDS: Furosemide 20 MG Tab PO SCH (08:32)
[2020-12-07] MEDS: Tamsulosin 0.4 MG Cap.ER PO SCH (08:33)
[2020-12-07] MEDS: Finasteride 5 MG Tab PO SCH (08:34)
[2020-12-07] MEDS: Insulin Glarg,Human.Rec.Analog 100 Unit/ML SUBCUT SCH (11:25)
[2020-12-07] MEDS ORDERED: cefTRIAXone 1 GM in Sodium Chloride 0.9% 50 ML IV SCH (17:00)
[2020-12-07] MEDS: Acetaminophen 325 MG Tab PO PRN (18:16)
[2020-12-07] MEDS ORDERED: INSULIN DETEMIR 100 UNIT/ML SQ SCH (21:00)
[2020-12-07] MEDS ORDERED: INSULIN DETEMIR SUBCUT SCH (21:00)
--- NOTE | 2020-12-07 23:23 | PCM.PN ---
- General Info Date of Service: 12/07/20 Subjective Update: Improved mental status and strength. Acceptant of disposition to assisted living. - Patient Data Vitals - Most Recent: Last Vital Signs Temp 101.2 F H 12/07/20 16:45 Pulse 72 12/07/20 16:45 Resp 16 12/07/20 16:45 BP 165/72 H 12/07/20 16:45 Pulse Ox 96 12/07/20 16:45 Weight - Most Recent: 189 lb 12.8 oz I&O - Last 24 Hours: Intake & Output 12/07/20 12/07/20 12/08/20 14:59 22:59 06:59 Intake Total 885 1185 Output Total 1150 Balance 89; 35 Lab Results Last 24 Hours: Laboratory Results - last 24 hr 12/06/20 12/07/20 12/07/20 Range/Units 23:00 07:57 11:23 POC Glucose 242 H 310 H (70-99) mg/dL Urine Color Yellow (YELLOW) Urine Appearance Turbid (CLEAR) Urine pH 7.5 (5.0-9.0) Ur Specific [place] 1.020 (1.005-1.030) Urine Protein 100 H (NEGATIVE) Urine Glucose (UA) 500 H (NEGATIVE) Urine Ketones Trace H (NEGATIVE) Urine Occult Blood Large H (NEGATIVE) Urine Nitrite Negative (NEGATIVE) Urine Bilirubin Negative (NEGATIVE) Urine Urobilinogen 0.2 (0.2-1.0) mg/dL Ur Leukocyte Esterase Small H (NEGATIVE) Urine RBC >100 H /HPF Urine WBC 10-20 H (0-5/HPF) /HPF Ur Epithelial Cells Rare (NOT SEEN) /HPF Amorphous Sediment Rare (NOT SEEN) /HPF Urine Bacteria Rare (0-FEW/HPF) /HPF Urine Mucus Not seen (NOT SEEN) /LPF 12/07/20 12/07/20 Range/Units 16:56 21:03 POC Glucose 269 H 257 H (70-99) mg/dL Urine Color (YELLOW) Urine Appearance (CLEAR) Urine pH (5.0-9.0) Ur Specific [place] (1.005-1.030) Urine Protein (NEGATIVE) Urine Glucose (UA) (NEGATIVE) Urine Ketones (NEGATIVE) Urine Occult Blood (NEGATIVE) Urine Nitrite (NEGATIVE) Urine Bilirubin (NEGATIVE) Urine Urobilinogen (0.2-1.0) mg/dL Ur Leukocyte Esterase (NEGATIVE) Urine RBC /HPF Urine WBC (0-5/HPF) /HPF Ur Epithelial Cells (NOT SEEN) /HPF Amorphous Sediment (NOT SEEN) /HPF Urine Bacteria (0-FEW/HPF) /HPF Urine Mucus (NOT SEEN) /LPF Poli Results Last 24 Hours: Microbiology 12/06/20 16:55 Aerobic Blood Culture - Preliminary Blood - Arm, Left NO GROWTH AFTER 1 DAY Anaerobic Blood Culture - Preliminary NO GROWTH AFTER 1 DAY 12/06/20 16:50 Aerobic Blood Culture - Preliminary Blood - Arm, Right NO GROWTH AFTER 1 DAY Anaerobic Blood Culture - Preliminary NO GROWTH AFTER 1 DAY Med Orders - Current: Current Medications Acetaminophen (Acetaminophen 325 Mg Tab) 650 mg PO Q4H PRN PRN Reason: Pain (Mild 1-3)/fever Last Admin: 12/07/20 18:16 Dose: 650 mg Documented by: Dextrose/Water (50% Dextrose In Water 50 Ml Syringe) 50 ml IV Q15M PRN PRN Reason: Hypoglycemia Finasteride (Finasteride 5 Mg Tab) 5 mg PO DAILY [facility] Last Admin: 12/07/20 08:34 Dose: 5 mg Documented by: Furosemide (Furosemide 20 Mg Tab) 20 mg PO DAILY [facility] Last Admin: 12/07/20 08:32 Dose: 20 mg Documented by: Glucagon (Glucagon,Human Recombinant 1 Mg Vial) 1 mg IM Q15M PRN PRN Reason: Hypoglycemia Ceftriaxone Sodium 1 gm/ (Sodium Chloride) 50 mls @ 100 mls/hr IV Q24H [facility] Last Infusion: 12/07/20 18:45 Dose: Infused Documented by: Insulin Human Lispro (Insulin Lispro 100 Units/Ml 3 Ml Vial) 0 unit SUBCUT WITHMEALSANDBED [facility]; Protocol Last Admin: 12/07/20 21:28 Dose: 3 units Documented by: Insulin Detemir ( Levemir) Pen *Own Med* 0 each SUBCUT BEDTIME [facility] Last Admin: 12/07/20 21:28 Dose: 1 each Documented by: Tamsulosin HCl (Tamsulosin 0.4 Mg Cap.Er) 0.4 mg PO DAILY [facility] Last Admin: 12/07/20 08:33 Dose: 0.4 mg Documented by: Discontinued Medications Acetaminophen (Acetaminophen 325 Mg Tab) 325 mg PO NOW ONE Stop: 12/07/20 00:48 Last Admin: 12/07/20 00:57 Dose: 325 mg Documented by: Heparin Sodium (Porcine) (Heparin Sodium 5,000 Units/Ml Vial) 5,000 units SUBCUT Q8HR [facility] Last Admin: 12/06/20 22:50 Dose: 5,000 units Documented by: Ceftriaxone Sodium 1 gm/ (Sodium Chloride) 50 mls @ 100 mls/hr IV ONETIME ONE Stop: 12/06/20 18:27 Last Infusion: 12/06/20 19:55 Dose: Infused Documented by: Insulin Glargine (Insulin Glarg,Human.Rec.Analog 100 Unit/Ml) 12 unit SUBCUT BID [facility] Last Admin: 12/07/20 11:25 Dose: Not Given Documented by: Non-Formulary Medication (Insulin Detemir) 12 unit SQ BID [facility] Last Admin: 12/06/20 22:36 Dose: Not Given Documented by: - Exam Urinary Catheter Total Time: 0Days 16Hours General: Alert, Oriented HEENT: Pupils Equal Neck: Supple Lungs: Clear to Auscultation Cardiovascular: Regular Rate, Regular Rhythm GI/Abdominal Exam: Normal Bowel Sounds, Soft, Non-Tender, No Distention (Male) Exam: Other (mercado in place, no discharge) Back Exam: Normal Inspection Extremities: No Pedal Edema Skin: Warm, Dry, Intact Wound/Incisions: Healing Well Neurological: No New Focal Deficit Psy/Mental Status: Alert, Normal Affect, Normal Mood - Patient Data Lab Results Last 24 hrs: Laboratory Results - last 24 hr 12/06/20 12/07/20 12/07/20 Range/Units 23:00 07:57 11:23 POC Glucose 242 H 310 H (70-99) mg/dL Urine Color Yellow (YELLOW) Urine Appearance Turbid (CLEAR) Urine pH 7.5 (5.0-9.0) Ur Specific [place] 1.020 (1.005-1.030) Urine Protein 100 H (NEGATIVE) Urine Glucose (UA) 500 H (NEGATIVE) Urine Ketones Trace H (NEGATIVE) Urine Occult Blood Large H (NEGATIVE) Urine Nitrite Negative (NEGATIVE) Urine Bilirubin Negative (NEGATIVE) Urine Urobilinogen 0.2 (0.2-1.0) mg/dL Ur Leukocyte Esterase Small H (NEGATIVE) Urine RBC >100 H /HPF Urine WBC 10-20 H (0-5/HPF) /HPF Ur Epithelial Cells Rare (NOT SEEN) /HPF Amorphous Sediment Rare (NOT SEEN) /HPF Urine Bacteria Rare (0-FEW/HPF) /HPF Urine Mucus Not seen (NOT SEEN) /LPF 12/07/20 12/07/20 Range/Units 16:56 21:03 POC Glucose 269 H 257 H (70-99) mg/dL Urine Color (YELLOW) Urine Appearance (CLEAR) Urine pH (5.0-9.0) Ur Specific [place] (1.005-1.030) Urine Protein (NEGATIVE) Urine Glucose (UA) (NEGATIVE) Urine Ketones (NEGATIVE) Urine Occult Blood (NEGATIVE) Urine Nitrite (NEGATIVE) Urine Bilirubin (NEGATIVE) Urine Urobilinogen (0.2-1.0) mg/dL Ur Leukocyte Esterase (NEGATIVE) Urine RBC /HPF Urine WBC (0-5/HPF) /HPF Ur Epithelial Cells (NOT SEEN) /HPF Amorphous Sediment (NOT SEEN) /HPF Urine Bacteria (0-FEW/HPF) /HPF Urine Mucus (NOT SEEN) /LPF Result Diagrams: 12/06/20 16:50 12/06/20 16:50 Poli Results Last 24 hrs: Microbiology 12/06/20 16:55 Aerobic Blood Culture - Preliminary Blood - Arm, Left NO GROWTH AFTER 1 DAY Anaerobic Blood Culture - Preliminary NO GROWTH AFTER 1 DAY 12/06/20 16:50 Aerobic Blood Culture - Preliminary Blood - Arm, Right NO GROWTH AFTER 1 DAY Anaerobic Blood Culture - Preliminary NO GROWTH AFTER 1 DAY Sepsis Event Note - Evaluation Sepsis Screening Result: No Definite Risk - Focused Exam Vital Signs: Vital Signs Temp Pulse Resp BP Pulse Ox 12/07/20 16:45 101.2 F H 72 16 165/72 H 96 12/07/20 12:00 98.3 F 64 20 146/70 H 97 - Problem List Review Problem List Initiated/Reviewed/Updated: Yes - My Orders Last 24 Hours: My Active Orders 12/06/20 23:00 CULTURE URINE [RM] Stat 12/06/20 23:42 Renew/Continue Urinary Catheter [OM.PC] Routine 12/07/20 08:49 Consult to Physical Therapy [PT Evaluation and Treatment] [CONS] Routine 12/07/20 09:00 Finasteride [Proscar] 5 mg PO DAILY Furosemide [Lasix] 20 mg PO DAILY Tamsulosin [Flomax] 0.4 mg PO DAILY 12/07/20 17:00 cefTRIAXone [Rocephin] 1 gm Sodium Chloride 0.9% [Normal Saline] 50 ml IV Q24H 12/07/20 21:00 Patient's Own Medication [Ptom] 0 each SUBCUT BEDTIME - Plan Plan:: #catheter associated UTI 2/2 citrobacter - present on admission - replaced mercado - re-culture via catheterization when re-placing the catheter - c/w ceftriaxone #HT / BPH / DM2 - c/w home meds PPX - SQH
[2020-12-08] MEDS: Insulin Lispro 100 Units/ML 3 ML Vial SUBCUT SCH (08:17)
[2020-12-08] MEDS: Finasteride 5 MG Tab PO SCH (08:59)
[2020-12-08] MEDS: Furosemide 20 MG Tab PO SCH (08:59)
[2020-12-08] MEDS: Tamsulosin 0.4 MG Cap.ER PO SCH (08:59)
--- NOTE | 2020-12-08 09:57 | PCM.DCSUM1 ---
Discharge Summary - Hospital Course Free Text/Narrative:: 85M w/ pmh HT, DM2, BPH, indwelling mercado cath for appx 1 mo now p/w weakness. Pt was seen in the ED two days ago for leaking mercado cath. Turns out the leg bag was extremely fool and so urine was leaking around the catheter. Pt was also noted w/ a UTI, given ceftriaxone and prescribed an oral cephalosporin. He went home w/ a referral for VNS. He never managed to fill the prescription for antibiotics. This am he reported shaking chills. Family called the ambulance since pt was very weak and family could not manage him. Denies any abd pain or measurable fever. No nausea, vomiting, diarrhea or cough. There is discharge noted around the mercado cath. Last ER visit pt was also noted w/ poor per- genital hygiene and was educated on mercado care. Per ER provider mercado was changed. Pt also notes he is pending for a urologic procedure in 3 days in [place]. #catheter associated UTI 2/2 citrobacter - present on admission - replaced mercado - culture is arita-sensitive - treated w/ ceftriaxone and switched to keflex on discharge #HT / BPH / DM2 - c/w home meds Pt was discharged into an assisted living setting for help w/ mercado care. - Discharge Data Discharge Date: 12/08/20 Discharge Disposition: Home, Self-Care 01 Condition: Good - Referral to Home Health Primary Care Physician: PCP None - Patient Summary/Data Consults: Consultations 12/07/20 08:49 Consult to Physical Therapy [PT Evaluation and Treatment] [CONS] Routine - Discharge Plan *PRESCRIPTION DRUG MONITORING PROGRAM REVIEWED*: No *COPY OF PRESCRIPTION DRUG MONITORING REPORT IN PATIENT CODY: No Prescriptions/Med Rec: cephALEXin [Cephalexin] 500 mg PO Q6H #20 capsule Home Medications: Home Meds Cholecalciferol (Vitamin D3) [Vitamin D3] 400 unit PO DAILY 11/14/20 [History] Finasteride [Proscar] 5 mg PO DAILY 11/14/20 [History] Furosemide [Lasix] 20 mg PO DAILY 11/14/20 [History] Insulin Detemir [Levemir Flextouch] 10 unit SQ DAILY 11/14/20 [History] [place]-3 Acid Ethyl Esters [Lovaza] 1 gm PO DAILY 11/14/20 [History] Tamsulosin HCl [Flomax] 0.4 mg PO BEDTIME 11/14/20 [History] Ubidecarenone [Co Q-10] 10 mg PO DAILY 11/14/20 [History] Vitamin B Complex [B Complex] 1 each PO DAILY 11/14/20 [History] Vitamin E 400 unit PO DAILY 11/14/20 [History] Zinc Sulfate [Zinc] 50 mg PO DAILY 11/14/20 [History] metFORMIN [Glucophage] 1,000 mg PO BIDMEALS 11/14/20 [History] cephALEXin [Cephalexin] 500 mg PO Q6H #20 capsule 12/08/20 [Rx] Forms: ED Department Discharge - Discharge Summary/Plan Comment DC Time >30 min.: Yes (35 min) - Patient Data Vitals - Most Recent: Last Vital Signs Temp 97.8 F 12/08/20 07:49 Pulse 69 12/08/20 07:49 Resp 20 12/08/20 07:49 BP 183/87 H 12/08/20 07:49 Pulse Ox 96 12/08/20 07:49 Weight - Most Recent: 189 lb 12.8 oz I&O - Last 24 hours: Intake & Output 12/07/20 12/08/20 12/08/20 22:59 06:59 14:59 Intake Total 1625 200 Output Total 190 1350 Balance -27% -1150 Lab Results - Last 24 hrs: Laboratory Results - last 24 hr 12/07/20 12/07/20 12/07/20 Range/Units 11:23 16:56 21:03 POC Glucose 310 H 269 H 257 H (70-99) mg/dL 12/08/20 Range/Units 07:44 POC Glucose 194 H (70-99) mg/dL DARRION Results - Last 24 hrs: Microbiology 12/06/20 17:20 Urine Culture - Preliminary Urine, Voided 12/06/20 23:00 Urine Culture - Preliminary Urine, Catheterized NO GROWTH AFTER 1 DAY 12/06/20 16:55 Aerobic Blood Culture - Preliminary Blood - Arm, Left NO GROWTH AFTER 1 DAY Anaerobic Blood Culture - Preliminary NO GROWTH AFTER 1 DAY 12/06/20 16:50 Aerobic Blood Culture - Preliminary Blood - Arm, Right NO GROWTH AFTER 1 DAY Anaerobic Blood Culture - Preliminary NO GROWTH AFTER 1 DAY Med Orders - Current: Current Medications Acetaminophen (Acetaminophen 325 Mg Tab) 650 mg PO Q4H PRN PRN Reason: Pain (Mild 1-3)/fever Last Admin: 12/07/20 18:16 Dose: 650 mg Documented by: Dextrose/Water (50% Dextrose In Water 50 Ml Syringe) 50 ml IV Q15M PRN PRN Reason: Hypoglycemia Finasteride (Finasteride 5 Mg Tab) 5 mg PO DAILY [facility] Last Admin: 12/08/20 08:59 Dose: 5 mg Documented by: Furosemide (Furosemide 20 Mg Tab) 20 mg PO DAILY [facility] Last Admin: 12/08/20 08:59 Dose: 20 mg Documented by: Glucagon (Glucagon,Human Recombinant 1 Mg Vial) 1 mg IM Q15M PRN PRN Reason: Hypoglycemia Ceftriaxone Sodium 1 gm/ (Sodium Chloride) 50 mls @ 100 mls/hr IV Q24H [facility] Last Infusion: 12/07/20 18:45 Dose: Infused Documented by: Insulin Human Lispro (Insulin Lispro 100 Units/Ml 3 Ml Vial) 0 unit SUBCUT WITHMEALSANDBED [facility]; Protocol Last Admin: 12/08/20 08:17 Dose: 1 units Documented by: Insulin Detemir ( Levemir) Pen *Own Med* 0 each SUBCUT BEDTIME [facility] Last Admin: 12/07/20 21:28 Dose: 1 each Documented by: Tamsulosin HCl (Tamsulosin 0.4 Mg Cap.Er) 0.4 mg PO DAILY [facility] Last Admin: 12/08/20 08:59 Dose: 0.4 mg Documented by: Discontinued Medications Acetaminophen (Acetaminophen 325 Mg Tab) 325 mg PO NOW ONE Stop: 12/07/20 00:48 Last Admin: 12/07/20 00:57 Dose: 325 mg Documented by: Heparin Sodium (Porcine) (Heparin Sodium 5,000 Units/Ml Vial) 5,000 units SUBCUT Q8HR [facility] Last Admin: 12/06/20 22:50 Dose: 5,000 units Documented by: Ceftriaxone Sodium 1 gm/ (Sodium Chloride) 50 mls @ 100 mls/hr IV ONETIME ONE Stop: 12/06/20 18:27 Last Infusion: 12/06/20 19:55 Dose: Infused Documented by: Insulin Glargine (Insulin Glarg,Human.Rec.Analog 100 Unit/Ml) 12 unit SUBCUT BID [facility] Last Admin: 12/07/20 11:25 Dose: Not Given Documented by: Non-Formulary Medication (Insulin Detemir) 12 unit SQ BID [facility] Last Admin: 12/06/20 22:36 Dose: Not Given Documented by:
== END 2020-12-08 10:30 | disposition home or self-care (01) ==
LOC: DL.ED 15:59 → DL.MS 17:54 → DL.ED 18:09
PROVIDERS: ADMIT Internal Medicine; ATTEND Internal Medicine
DX: T83.511A Infection and inflammatory reaction due to indwelling urethral catheter, initial encounter (principal); I10 Essential (primary) hypertension; E11.9 Type 2 diabetes mellitus without complications; N40.0 Benign prostatic hyperplasia without lower urinary tract symptoms; Z20.822 Contact with and (suspected) exposure to COVID-19; Z79.899 Other long term (current) drug therapy; Z79.4 Long term (current) use of insulin
CPT/HCPCS: 0240U; 36415; 51702; 80053; 81001; 82947; 83605; 83880; 85025; 87040; 87086; 87088; 87186; 96365; 96366; 96372; 97161; 99284; 99285; A9270; G0378; J0696; J1644; J1815

== ENCOUNTER 2021-04-24 17:46 | Emergency (ER) | payer MEDICARE, OTHER ==
--- NOTE | 2021-04-24 20:07 | EDM.PDOC ---
ED HPI GENERAL MEDICAL PROBLEM - General Chief Complaint: Genitourinary Problem Stated Complaint: CATHETER PLUGGED Time Seen by Provider: 04/24/21 20:04 Source of Information: Reports: Patient - History of Present Illness INITIAL COMMENTS - FREE TEXT/NARRATIVE: Pt is here for a urinary catheter problem. He noted it was plugged and leaking and had it changed on 04/16, then again today. However, after changing the catheter, they flushed it without an return so he came in to be evaluated. He feels very full and has pressure type pain in his lower abdomen. He noted there were 2 blood clots when they changed it back on 04/16. He has also noted leaking around the catheter. He denies any fevers, but does feel chilly right now. No recent illnesses. No other pain. He reports he has his Mercado due to difficulty urinating from a large prostate and that he will have it the rest of his life. Bladder Pain Score (Numeric/FACES): 2 - Related Data Allergies Allergy/AdvReac Type Severity Reaction Status Date / Time No Known Allergies Allergy Verified 04/24/21 20:00 Home Meds: Home Meds Cholecalciferol (Vitamin D3) [Vitamin D3] 400 unit PO DAILY 11/14/20 [History] Finasteride [Proscar] 5 mg PO DAILY 11/14/20 [History] Furosemide [Lasix] 20 mg PO DAILY 11/14/20 [History] Insulin Detemir [Levemir Flextouch] 10 unit SQ DAILY 11/14/20 [History] [place]-3 Acid Ethyl Esters [Lovaza] 1 gm PO DAILY 11/14/20 [History] Tamsulosin HCl [Flomax] 0.4 mg PO BEDTIME 11/14/20 [History] Ubidecarenone [Co Q-10] 10 mg PO DAILY 11/14/20 [History] Vitamin B Complex [B Complex] 1 each PO DAILY 11/14/20 [History] Vitamin E 400 unit PO DAILY 11/14/20 [History] Zinc Sulfate [Zinc] 50 mg PO DAILY 11/14/20 [History] metFORMIN [Glucophage] 1,000 mg PO BIDMEALS 11/14/20 [History] cephALEXin [Cephalexin] 500 mg PO Q6H #20 capsule 12/08/20 [Rx] Ferrous Sulfate 325 mg PO DAILY 04/24/21 [History] Insuln Asp Prot/Insulin Aspart [NovoLOG Mix 70-30] 10 unit SQ BID 04/24/21 [History] Past Medical History - Past Health History Medical/Surgical History: Denies Medical/Surgical History HEENT History: Reports: Impaired Vision Cardiovascular History: Reports: Hypertension Respiratory History: Reports: None Gastrointestinal History: Reports: None Genitourinary History: Reports: BPH, Retention, Urinary, Other (See Below) Other Genitourinary History: urinary distension, gross hematuria, obstructive uropathy Musculoskeletal History: Reports: None Neurological History: Reports: None Psychiatric History: Reports: None Endocrine/Metabolic History: Reports: Diabetes, Type II Hematologic History: Reports: None Immunologic History: Reports: None Oncologic (Cancer) History: Reports: None Dermatologic History: Reports: None - Infectious Disease History Infectious Disease History: Reports: None - Past Surgical History GI Surgical History: Reports: Hernia Repair/Other Social & Family History - Family History Family Medical History: No Pertinent Family History - Tobacco Use Tobacco Use Status *Q: Never Tobacco User - Caffeine Use Caffeine Use: Reports: Coffee - Recreational Drug Use Recreational Drug Use: No ED ROS GENERAL - Review of Systems Review Of Systems: Comprehensive ROS is negative, except as noted in HPI. ED EXAM, RENAL/ - Physical Exam Exam: See Below Exam Limited By: No Limitations General Appearance: Alert, WD/WN, No Apparent Distress Eye Exam: Bilateral Eye: Normal Inspection Ears: Normal External Exam Throat/Mouth: Normal Voice, No Airway Compromise Head: Atraumatic, Normocephalic Neck: Supple, Non-Tender Respiratory/Chest: No Respiratory Distress, Lungs Clear, Normal Breath Sounds, No Accessory Muscle Use Cardiovascular: Normal Peripheral Pulses, Regular Rate, Rhythm, No Murmur GI/Abdominal: Soft, Tender (suprapubic with enlarged bladder). No: Guarding, Rebound Rectal (Males) Exam: Deferred Back Exam: Normal Inspection, Full Range of Motion Extremities: Normal Range of Motion, No Pedal Edema Neurological: Alert, Oriented, Normal Cognition Psychiatric: Normal Affect, Normal Mood Skin Exam: Warm, Dry, Intact, Normal Color Lymphatic: No Adenopathy Course - Vital Signs Last Recorded V/S: Last Vital Signs Temp 96.7 F L 04/24/21 20:07 Pulse 95 04/24/21 20:07 Resp 16 04/24/21 20:07 BP 221/117 H 04/24/21 20:07 Pulse Ox 96 04/24/21 20:07 - Orders/Labs/Meds Orders: Active Orders 24 hr Category Date Time Status Head wo Cont [CT] Stat Exams 04/24/21 20:28 Stop Req Metoclopramide [Reglan] Med 04/24/21 20:31 Stop Req 10 mg IVPUSH ONETIME ONE Meds: Medications Discontinued Medications Generic Name Dose Route Start Last Admin Trade Name Layne PRN Reason Stop Dose Admin Metoclopramide HCl 10 mg 04/24/21 20:31 Metoclopramide 10 Mg/2 Ml Sdv IVPUSH 04/24/21 20:32 ONETIME ONE - Re-Assessments/Exams Free Text/Narrative Re-Assessment/Exam: Unable to flush mercado with results. Mercado was replaced with over 800 cc output. Pt reports relief and desire for discharge. 04/24/21 20:33 Departure - Departure Time of Disposition: 20:33 Disposition: Home, Self-Care 01 Condition: Good Clinical Impression: Urinary catheter (Mercado) change required Urinary catheter dysfunction Qualifiers: Encounter type: initial encounter Qualified Code(s): T83.018A - Breakdown (mechanical) of other urinary catheter, initial encounter - Discharge Information *PRESCRIPTION DRUG MONITORING PROGRAM REVIEWED*: Not Applicable *COPY OF PRESCRIPTION DRUG MONITORING REPORT IN PATIENT CODY: Not Applicable Instructions: Indwelling Urinary Catheter Care, Adult Forms: ED Department Discharge Additional Instructions: Call/return to the ER is symptoms return Follow up with Dr. Buck, urology, in 3-5 days Sepsis Event Note (ED) - Focused Exam Vital Signs: Vital Signs Temp Pulse Resp BP Pulse Ox 04/24/21 20:07 96.7 F L 95 16 221/117 H 96 - My Orders Last 24 Hours: My Active Orders 04/24/21 20:28 Head wo Cont [CT] Stat 04/24/21 20:31 Metoclopramide [Reglan] 10 mg IVPUSH ONETIME ONE - Assessment/Plan Last 24 Hours: My Active Orders 04/24/21 20:28 Head wo Cont [CT] Stat 04/24/21 20:31 Metoclopramide [Reglan] 10 mg IVPUSH ONETIME ONE
[2021-04-24] MEDS ORDERED: Metoclopramide 10 MG/2 ML SDV IVPUSH ONE (20:31)
== END 2021-04-24 20:47 | disposition home or self-care (01) ==
LOC: DL.ED 17:46
DX: T83.018A Breakdown (mechanical) of other urinary catheter, initial encounter (principal); T83.038A Leakage of other urinary catheter, initial encounter; I10 Essential (primary) hypertension; E11.9 Type 2 diabetes mellitus without complications; Z79.4 Long term (current) use of insulin; Z79.899 Other long term (current) drug therapy
CPT/HCPCS: 51702; 99283-25

== ENCOUNTER 2023-12-29 11:38 | Inpatient (IN) | payer MEDICARE, MEDICAID ==
[2023-12-29 12:41] LABS: HEMATOCRIT 41.7 % (40.0-54.0); HEMOGLOBIN 14.2 g/dL (14.0-18.0); MEAN CORPUSCULAR HEMOGLOBIN 29.3 pg (27.0-34.0); MEAN CORPUSCULAR HGB CONC 34.1 g/dL (33.0-35.0); PLATELET COUNT,PLT 321 10^3/uL (150-450); RED BLOOD CELL COUNT 4.85 10^6/uL (4.6-6.2); WHITE BLOOD CELL COUNT,WBC 8.7 10^3/uL (5.0-10.0)
[2023-12-29] MEDS: Diphtheria,Pertussis(Acell),Tetanus Vaccine 0.5 ML Syringe IM ONE (12:48)
[2023-12-29 13:10] LABS: A/G RATIO 0.9; ALBUMIN 3.5 g/dL (3.4-5.0); BILIRUBIN TOTAL 0.7 mg/dL (0.2-1.0); C-REACTIVE PROTEIN 1.53 ng/dL (<=0.50); CALCIUM 8.8 mg/dL (8.5-10.1); CREATININE 1.65 mg/dL (0.70-1.30); EST CRCL DRUG DOSING (CG) 31.54 mL/min; MAGNESIUM 1.9 mg/dL (1.8-2.4); PROTEIN TOTAL,TP 7.6 g/dL (6.4-8.2)
[2023-12-29 13:13] LABS: LACTIC ACID 1.5 mmol/L (0.4-2.0)
[2023-12-29 13:28] LABS: EOSINOPHILS PERCENT MAN 1 % (1-3); LYMPHOCYTES PERCENT MAN 26 % (20-50); MONOCYTES PERCENT MAN 18 % (2-8); SEG NEUTROPHILS PERCENT MAN 55 % (42-75)
[2023-12-29] MEDS: Sodium Chloride 0.9% 1,000 ML IV ONE (13:44)
[2023-12-29] MEDS: Doxycycline 100 MG in Sodium Chloride 0.9% 100 ML IV ONE (13:51)
[2023-12-29] MEDS ORDERED: Acetaminophen/HYDROcodone 325-5 MG Tab PO PRN (16:01)
[2023-12-29] MEDS ORDERED: Acetaminophen 325 MG Tab PO PRN (16:01)
[2023-12-29] MEDS ORDERED: Albuterol/Ipratropium 3.0-0.5 MG/3 ML Neb Soln NEB PRN (16:05)
[2023-12-29] MEDS ORDERED: Polyethylene Glycol 3350 Powder 17 GM Packet PO PRN (16:05)
[2023-12-29] MEDS ORDERED: HYDROmorphone 0.5 MG/0.5 ML Syringe IVPUSH PRN (16:05)
[2023-12-29] MEDS ORDERED: Naloxone 2 MG/2 ML Syringe IVPUSH PRN (16:05)
[2023-12-29] MEDS ORDERED: Magnesium Hydroxide 400 MG/5 ML Susp 30 ML Cup PO PRN (16:05)
[2023-12-29] MEDS ORDERED: Melatonin 3 MG Tab PO PRN (16:05)
[2023-12-29] MEDS ORDERED: Sennosides/Docusate Sodium 50-8.6 MG Tab PO PRN (16:05)
[2023-12-29] MEDS ORDERED: Ondansetron 4 MG/2 ML SDV IVPUSH PRN (16:05)
[2023-12-29] MEDS ORDERED: Glucagon,Human Recombinant 1 MG Vial IM PRN (16:34)
[2023-12-29] MEDS ORDERED: 50% Dextrose in Water 50 ML Syringe IVPUSH PRN (16:34)
[2023-12-29] MEDS: cefTRIAXone 1 GM Vial IVPUSH SCH (17:00)
[2023-12-29] MEDS: Insulin Lispro 100 Units/ML 3 ML Vial SUBCUT SCH (17:23)
[2023-12-29] MEDS ORDERED: Sodium Chloride 0.9% 10 ML Syringe FLUSH PRN (17:24)
[2023-12-29] MEDS: Empagliflozin 25 MG Tab PO SCH (21:14)
[2023-12-29] MEDS: Insulin Glarg,Human.Rec.Analog 100 Unit/ML 10 ML Vial SUBCUT SCH (21:15)
[2023-12-29] MEDS: Saccharomyces Boulardii (Probiotic) 250 MG Cap PO SCH (21:15)
[2023-12-29] MEDS: Doxycycline 100 MG in Sodium Chloride 0.9% 100 ML IV SCH (21:24)
[2023-12-30 06:46] LABS: HEMATOCRIT 39.1 % (40.0-54.0); HEMOGLOBIN 12.8 g/dL (14.0-18.0); MEAN CORPUSCULAR HEMOGLOBIN 28.8 pg (27.0-34.0); MEAN CORPUSCULAR HGB CONC 32.7 g/dL (33.0-35.0); MEAN CORPUSCULAR VOLUME 87.9 fL (80-100); PLATELET COUNT,PLT 227 10^3/uL (150-450); RED BLOOD CELL COUNT 4.45 10^6/uL (4.6-6.2); WHITE BLOOD CELL COUNT,WBC 7.4 10^3/uL (5.0-10.0)
[2023-12-30 07:13] LABS: ANION GAP 14.7 mEq/L (7-13); BILIRUBIN TOTAL 0.5 mg/dL (0.2-1.0); C-REACTIVE PROTEIN 1.78 ng/dL (<=0.50); CALCIUM 8.4 mg/dL (8.5-10.1); CREATININE 1.6 mg/dL (0.70-1.30); EST CRCL DRUG DOSING (CG) 32.53 mL/min; POTASSIUM,K 3.7 mmol/L (3.5-5.1); PROTEIN TOTAL,TP 6.6 g/dL (6.4-8.2)
[2023-12-30 07:30] LABS: A/G RATIO 0.83; BUN/CREATININE RATIO 16.3 (No establ ref range)
[2023-12-30 08:09] LABS: BAND PERCENT MAN 2 %; EOSINOPHILS PERCENT MAN 2 % (1-3); LYMPHOCYTES PERCENT MAN 31 % (20-50); MONOCYTES PERCENT MAN 19 % (2-8); SEG NEUTROPHILS PERCENT MAN 46 % (42-75)
[2023-12-30] MEDS: Cholecalciferol (Vitamin D3) 10 MCG Tab PO SCH (08:19)
[2023-12-30] MEDS: Vitamin E (dl-alpha-tocopherol acetate) 400 Unit Cap PO SCH (08:19)
[2023-12-30] MEDS: Potassium Chloride 10 MEQ Tab.ER PO SCH (08:20)
[2023-12-30] MEDS: Finasteride 5 MG Tab PO SCH (08:20)
[2023-12-30] MEDS ORDERED: CHOLECALCIFEROL 50 MCG PO SCH (09:00)
[2023-12-30] MEDS ORDERED: IRON CARBONYL 15 MG PO SCH (09:00)
[2023-12-30] MEDS ORDERED: guaiFENesin/Dextromethorphan 100-10 MG/5 ML Soln 5 ML Cup PO PRN (11:45)
[2023-12-30] MEDS ORDERED: Loperamide 2 MG Cap PO PRN (11:45)
[2023-12-30] MEDS: valACYclovir 1,000 MG Tab PO ONE (12:49)
[2023-12-30] MEDS: valACYclovir 1,000 MG Tab PO SCH (21:05)
[2023-12-31 06:42] LABS: HEMATOCRIT 38.1 % (40.0-54.0); HEMOGLOBIN 12.6 g/dL (14.0-18.0); MEAN CORPUSCULAR HEMOGLOBIN 29.2 pg (27.0-34.0); MEAN CORPUSCULAR HGB CONC 33.1 g/dL (33.0-35.0); MEAN CORPUSCULAR VOLUME 88.4 fL (80-100); PLATELET COUNT,PLT 231 10^3/uL (150-450); RED BLOOD CELL COUNT 4.31 10^6/uL (4.6-6.2); WHITE BLOOD CELL COUNT,WBC 6.6 10^3/uL (5.0-10.0)
[2023-12-31 07:25] LABS: ALBUMIN 2.8 g/dL (3.4-5.0); ANION GAP 14.7 mEq/L (7-13); BILIRUBIN TOTAL 0.5 mg/dL (0.2-1.0); BUN/CREATININE RATIO 18.2 (No establ ref range); C-REACTIVE PROTEIN 1.88 ng/dL (<=0.50); CALCIUM 8.4 mg/dL (8.5-10.1); CREATININE 1.65 mg/dL (0.70-1.30); EST CRCL DRUG DOSING (CG) 31.54 mL/min; MAGNESIUM 1.9 mg/dL (1.8-2.4); POTASSIUM,K 3.7 mmol/L (3.5-5.1); PROTEIN TOTAL,TP 6.5 g/dL (6.4-8.2)
[2023-12-31 07:27] LABS: A/G RATIO 0.76
[2023-12-31 07:57] LABS: BAND PERCENT MAN 5 %; EOSINOPHILS PERCENT MAN 2 % (1-3); LYMPHOCYTES PERCENT MAN 36 % (20-50); MONOCYTES PERCENT MAN 14 % (2-8); SEG NEUTROPHILS PERCENT MAN 43 % (42-75)
[2023-12-31] MEDS ORDERED: Cholecalciferol (Vitamin D3) 10 MCG Tab PO SCH (09:00)
[2023-12-31] MEDS ORDERED: Potassium Chloride 10 MEQ Tab.ER PO SCH (09:00)
[2023-12-31] MEDS: Ferrous Sulfate 325 MG Tab PO SCH (09:25)
[2023-12-31] MEDS: valACYclovir 1,000 MG Tab PO SCH (10:22)
[2023-12-31] MEDS: Non-Formulary Medication 1 Each (Ubidecarenone [Co Q-10] 200 MG Capsule) PO SCH (10:31)
[2023-12-31] MEDS: Carbamide Peroxide 6.5% Otic Soln 15 ML Bottle EARBOTH SCH (20:30)
[2023-12-31] MEDS: amLODIPine 5 MG Tab PO SCH (20:40)
[2023-12-31] MEDS: Doxycycline Monohydrate 100 MG Cap PO SCH (20:40)
[2023-12-31 20:41] LABS: ANA BY ELISA, IGG W/RFLX IFA Detected (None Detected)
[2024-01-01 06:26] LABS: HEMATOCRIT 37.7 % (40.0-54.0); HEMOGLOBIN 12.4 g/dL (14.0-18.0); MEAN CORPUSCULAR HEMOGLOBIN 28.8 pg (27.0-34.0); MEAN CORPUSCULAR HGB CONC 32.9 g/dL (33.0-35.0); MEAN CORPUSCULAR VOLUME 87.5 fL (80-100); PLATELET COUNT,PLT 222 10^3/uL (150-450); RED BLOOD CELL COUNT 4.31 10^6/uL (4.6-6.2); WHITE BLOOD CELL COUNT,WBC 6.4 10^3/uL (5.0-10.0)
[2024-01-01 07:08] LABS: ALBUMIN 2.8 g/dL (3.4-5.0); ANION GAP 15.7 mEq/L (7-13); BILIRUBIN TOTAL 0.3 mg/dL (0.2-1.0); BUN/CREATININE RATIO 24.1 (No establ ref range); C-REACTIVE PROTEIN 1.62 ng/dL (<=0.50); CALCIUM 8.4 mg/dL (8.5-10.1); CREATININE 1.58 mg/dL (0.70-1.30); EST CRCL DRUG DOSING (CG) 32.94 mL/min; POTASSIUM,K 3.7 mmol/L (3.5-5.1); PROTEIN TOTAL,TP 6.5 g/dL (6.4-8.2)
[2024-01-01 07:09] LABS: A/G RATIO 0.76
[2024-01-01 07:11] LABS: EOSINOPHILS PERCENT MAN 3 % (1-3); LYMPHOCYTES PERCENT MAN 38 % (20-50); MONOCYTES PERCENT MAN 14 % (2-8); SEG NEUTROPHILS PERCENT MAN 45 % (42-75)
[2024-01-01] MEDS ORDERED: hydrALAZINE 20 MG/ML SDV IVPUSH PRN (13:06)
[2024-01-01] MEDS: Bumetanide 1 MG/4 ML MDV IVPUSH ONE (14:33)
[2024-01-02 07:09] LABS: ALBUMIN 2.8 g/dL (3.4-5.0); ANION GAP 14.7 mEq/L (7-13); BILIRUBIN TOTAL 0.4 mg/dL (0.2-1.0); BUN/CREATININE RATIO 21.7 (No establ ref range); C-REACTIVE PROTEIN 1.07 ng/dL (<=0.50); CALCIUM 8.5 mg/dL (8.5-10.1); CREATININE 1.43 mg/dL (0.70-1.30); EST CRCL DRUG DOSING (CG) 36.39 mL/min; MAGNESIUM 2.1 mg/dL (1.8-2.4); POTASSIUM,K 3.7 mmol/L (3.5-5.1); PROTEIN TOTAL,TP 6.6 g/dL (6.4-8.2)
[2024-01-02 07:11] LABS: HEMATOCRIT 38.1 % (40.0-54.0); HEMOGLOBIN 12.7 g/dL (14.0-18.0); MEAN CORPUSCULAR HGB CONC 33.3 g/dL (33.0-35.0); PLATELET COUNT,PLT 220 10^3/uL (150-450); RED BLOOD CELL COUNT 4.38 10^6/uL (4.6-6.2); WHITE BLOOD CELL COUNT,WBC 6.4 10^3/uL (5.0-10.0)
[2024-01-02 07:23] LABS: A/G RATIO 0.74
[2024-01-02 08:41] LABS: EOSINOPHILS PERCENT MAN 1 % (1-3); LYMPHOCYTES PERCENT MAN 35 % (20-50); MONOCYTES PERCENT MAN 9 % (2-8); SEG NEUTROPHILS PERCENT MAN 55 % (42-75)
[2024-01-02] MEDS: hydrALAZINE 25 MG Tab PO STA (09:57)
[2024-01-02] MEDS: Bacitracin/Neomycin/Polymyxin B Oint 28.4 GM Tube TOP SCH (11:00)
[2024-01-02] MEDS ORDERED: Hydrocortisone 1% Crm 30 GM Tube TOP PRN (11:22)
[2024-01-02] MEDS: diphenhydrAMINE 25 MG Tab PO PRN (11:37)
[2024-01-02 16:47] LABS: ANA PATTERN Speckled; ANA,HEP-2,IGG Detected (<1:80); CYTOPLASMIC PATTERN Speckled
[2024-01-02] MEDS: hydrALAZINE 25 MG Tab PO SCH (22:00)
[2024-01-03] MEDS: Bumetanide 1 MG Tab PO SCH (12:44)
[2024-01-04 08:47] LABS: V ZOSTER IGM 0.57 ISR (<=0.90)
== END 2024-01-04 13:50 | disposition other institution (70) | DRG 603 ==
LOC: DL.ED 11:38 → DL.MS 14:22 → INTOOBSV 14:22 → OBSVTOIN 12-31 14:35
PROVIDERS: ADMIT Internal Medicine; ATTEND Internal Medicine
DX: L03.312 Cellulitis of back [any part except buttock and flank] (principal); N17.9 Acute kidney failure, unspecified; S30.860A Insect bite (nonvenomous) of lower back and pelvis, initial encounter; N40.1 Benign prostatic hyperplasia with lower urinary tract symptoms; E11.9 Type 2 diabetes mellitus without complications; I10 Essential (primary) hypertension; D50.9 Iron deficiency anemia, unspecified; E11.65 Type 2 diabetes mellitus with hyperglycemia; H91.90 Unspecified hearing loss, unspecified ear; H54.7 Unspecified visual loss; R33.8 Other retention of urine; Z97.3 Presence of spectacles and contact lenses; Z79.4 Long term (current) use of insulin; Z79.899 Other long term (current) drug therapy; W57.XXXA Bitten or stung by nonvenomous insect and other nonvenomous arthropods, initial encounter
CPT/HCPCS: 36415; 80053; 82947; 83605; 83735; 85025; 86038; 86039; 86140; 86618; 86787; 90471; 90715; 96365; 97161-GP; 99284; 99284-25; A9270-GY; J0696; J1815-GY; J3490; J7030

== ENCOUNTER 2024-11-03 16:23 | Inpatient (IN) | payer MEDICARE, MEDICAID ==
[2024-11-03 16:45] LABS: APPEARANCE,URINE TURBID (CLEAR); BILIRUBIN,URINE NEGATIVE (NEGATIVE); COLOR,URINE YELLOW (YELLOW); GLUCOSE,URINE 500 (NEGATIVE); KETONES,URINE NEGATIVE (NEGATIVE); LEUKOCYTE ESTERASE,URINE LARGE (NEGATIVE); NITRITE,URINE NEGATIVE (NEGATIVE); OCCULT BLOOD,URINE LARGE (NEGATIVE); PH,URINE 5.5 (5.0-9.0); PROTEIN,URINE 100 (NEGATIVE); UROBILINOGEN,URINE 0.2 mg/dL (0.2-1.0)
[2024-11-03 16:47] LABS: HEMATOCRIT 36.1 % (40.0-54.0); HEMOGLOBIN 12.6 g/dL (14.0-18.0); MEAN CORPUSCULAR HEMOGLOBIN 29.7 pg (27.0-34.0); MEAN CORPUSCULAR HGB CONC 34.9 g/dL (33.0-35.0); MEAN CORPUSCULAR VOLUME 85.1 fL (80-100); PLATELET COUNT,PLT 231 10^3/uL (150-450); RED BLOOD CELL COUNT 4.24 10^6/uL (4.6-6.2); WHITE BLOOD CELL COUNT,WBC 12.8 10^3/uL (5.0-10.0)
[2024-11-03 17:03] LABS: ALBUMIN 3.1 g/dL (3.4-5.0); BILIRUBIN TOTAL 0.6 mg/dL (0.2-1.0); BUN/CREATININE RATIO 24.9 (No establ ref range); CALCIUM 8.7 mg/dL (8.5-10.1); CREATININE 3.09 mg/dL (0.70-1.30); EST CRCL DRUG DOSING (CG) 17.06 mL/min; POTASSIUM,K 4.7 mmol/L (3.5-5.1); PROTEIN TOTAL,TP 7.5 g/dL (6.4-8.2)
[2024-11-03 17:03] LABS: BACTERIA,URINE MODERATE /HPF (0-FEW/HPF); EPITHELIAL CELLS,URINE RARE /HPF (NOT SEEN); WBC,URINE PACKED /HPF (0-5/HPF)
[2024-11-03 17:04] LABS: YEAST,URINE FEW /HPF (NOT SEEN)
[2024-11-03 17:08] LABS: A/G RATIO 0.7; ANION GAP 15.7 mEq/L (7-13)
[2024-11-03 17:12] LABS: LYMPHOCYTES PERCENT MAN 21 % (20-50); MONOCYTES PERCENT MAN 18 % (2-8); SEG NEUTROPHILS PERCENT MAN 61 % (42-75)
[2024-11-03] MEDS: cefTRIAXone 2 GM Vial IVPUSH ONE (17:18)
[2024-11-03] MEDS ORDERED: Sodium Chloride 0.9% 10 ML Syringe FLUSH PRN (19:27)
[2024-11-03] MEDS ORDERED: Albuterol/Ipratropium 3.0-0.5 MG/3 ML Neb Soln NEB PRN (19:27)
[2024-11-03] MEDS ORDERED: Ondansetron 4 MG/2 ML SDV IVPUSH PRN (19:27)
[2024-11-03] MEDS ORDERED: Acetaminophen 325 MG Tab PO PRN (19:27)
[2024-11-03] MEDS ORDERED: 50% Dextrose in Water 50 ML Syringe IVPUSH PRN (20:37)
[2024-11-03] MEDS ORDERED: Glucagon,Human Recombinant 1 MG Vial IM PRN (20:37)
[2024-11-03] MEDS: Nystatin Topical Powder 60 GM Bottle TOP SCH (21:00)
[2024-11-03] MEDS: Docusate Sodium 100 MG Cap PO SCH (21:01)
[2024-11-03] MEDS: Sennosides/Docusate Sodium 50-8.6 MG Tab PO SCH (21:01)
[2024-11-03] MEDS: Melatonin 3 MG Tab PO PRN (21:01)
[2024-11-03] MEDS: Polyethylene Glycol 3350 Powder 17 GM Packet PO SCH (21:01)
[2024-11-03] MEDS: Sodium Chloride 0.9% 10 ML Syringe FLUSH SCH (21:02)
[2024-11-04 06:40] LABS: HEMATOCRIT 34.6 % (40.0-54.0); HEMOGLOBIN 11.4 g/dL (14.0-18.0); MEAN CORPUSCULAR HEMOGLOBIN 28.4 pg (27.0-34.0); MEAN CORPUSCULAR HGB CONC 32.9 g/dL (33.0-35.0); MEAN CORPUSCULAR VOLUME 86.3 fL (80-100); PLATELET COUNT,PLT 219 10^3/uL (150-450); RED BLOOD CELL COUNT 4.01 10^6/uL (4.6-6.2); WHITE BLOOD CELL COUNT,WBC 7.4 10^3/uL (5.0-10.0)
[2024-11-04 06:58] LABS: ALBUMIN 2.8 g/dL (3.4-5.0); ANION GAP 12.3 mEq/L (7-13); BILIRUBIN TOTAL 0.4 mg/dL (0.2-1.0); BUN/CREATININE RATIO 28.5 (No establ ref range); CALCIUM 8.7 mg/dL (8.5-10.1); CREATININE 2.53 mg/dL (0.70-1.30); EST CRCL DRUG DOSING (CG) 20.84 mL/min; MAGNESIUM 2.3 mg/dL (1.8-2.4); POTASSIUM,K 4.3 mmol/L (3.5-5.1); PROTEIN TOTAL,TP 6.9 g/dL (6.4-8.2); PROTHROMBIN TIME 10.4 SEC (9.0-12.0); PTT,PARTIAL THROMBOPLSTIN TIME 26.6 SEC (22.0-34.0)
[2024-11-04 07:00] LABS: A/G RATIO 0.68
[2024-11-04 07:36] LABS: HEMOGLOBIN A1C 11.1 % (<5.7)
[2024-11-04 07:57] LABS: EOSINOPHILS PERCENT MAN 1 % (1-3); LYMPHOCYTES PERCENT MAN 30 % (20-50); MONOCYTES PERCENT MAN 20 % (2-8); SEG NEUTROPHILS PERCENT MAN 49 % (42-75)
[2024-11-04 08:24] LABS: PERCENT FE SATURATION 22.4 % (20.0-50.0)
[2024-11-04] MEDS: Finasteride 5 MG Tab PO SCH (08:35)
[2024-11-04] MEDS: cefTRIAXone 1 GM Vial IVPUSH SCH (08:35)
[2024-11-04] MEDS: Enoxaparin 30 MG/0.3 ML Syringe SUBCUT SCH (08:35)
[2024-11-04] MEDS: Empagliflozin 10 MG Tab PO SCH (08:36)
[2024-11-04] MEDS: Insulin Lispro 100 Units/ML 3 ML Vial SUBCUT SCH (08:38)
[2024-11-04] MEDS: Bisacodyl 5 MG Tab PO SCH (11:59)
[2024-11-04] MEDS: Bumetanide 1 MG/4 ML MDV IVPUSH ONE ×2 (11:59→17:52)
[2024-11-04] MEDS: Tamsulosin 0.4 MG Cap.ER PO SCH (12:20)
[2024-11-04] MEDS: Potassium Chloride 10 MEQ Tab.ER PO ONE ×2 (13:37→17:52)
[2024-11-04] MEDS: Pantoprazole 40 MG Tab.CR PO SCH (13:37)
[2024-11-04] MEDS: Polyethylene Glycol 3350 Powder 17 GM Packet PO SCH (13:37)
[2024-11-04] MEDS: Nystatin Topical Powder 60 GM Bottle TOP SCH (13:39)
[2024-11-04] MEDS ORDERED: Insulin Glarg,Human.Rec.Analog 100 Unit/ML 10 ML Vial SUBCUT SCH (21:00)
[2024-11-04] MEDS: Insulin Glarg,Human.Rec.Analog 100 Unit/ML 10 ML Vial SUBCUT SCH (21:27)
[2024-11-05 06:41] LABS: HEMOGLOBIN 12.4 g/dL (14.0-18.0); MEAN CORPUSCULAR HEMOGLOBIN 29.2 pg (27.0-34.0); MEAN CORPUSCULAR HGB CONC 33.5 g/dL (33.0-35.0); MEAN CORPUSCULAR VOLUME 87.1 fL (80-100); PLATELET COUNT,PLT 232 10^3/uL (150-450); RED BLOOD CELL COUNT 4.25 10^6/uL (4.6-6.2); WHITE BLOOD CELL COUNT,WBC 6.8 10^3/uL (5.0-10.0)
[2024-11-05 07:16] LABS: ALBUMIN 3.1 g/dL (3.4-5.0); ANION GAP 14.8 mEq/L (7-13); BILIRUBIN TOTAL 0.5 mg/dL (0.2-1.0); BUN/CREATININE RATIO 27.4 (No establ ref range); CALCIUM 8.8 mg/dL (8.5-10.1); CREATININE 2.15 mg/dL (0.70-1.30); EST CRCL DRUG DOSING (CG) 24.52 mL/min; MAGNESIUM 2.1 mg/dL (1.8-2.4); POTASSIUM,K 3.8 mmol/L (3.5-5.1); PROTEIN TOTAL,TP 7.3 g/dL (6.4-8.2)
[2024-11-05 07:17] LABS: A/G RATIO 0.74
[2024-11-05 07:42] LABS: LYMPHOCYTES PERCENT MAN 30 % (20-50); MONOCYTES PERCENT MAN 18 % (2-8); SEG NEUTROPHILS PERCENT MAN 52 % (42-75)
[2024-11-05] MEDS: Potassium Chloride 10 MEQ Tab.ER PO SCH ×2 (09:05→09:12)
[2024-11-05] MEDS: Bumetanide 1 MG/4 ML MDV IVPUSH SCH ×2 (09:06→14:36)
[2024-11-05] MEDS: Ampicillin/Sulbactam Na 3 GM in Sodium Chloride 0.9% 100 ML IV SCH (13:26)
[2024-11-05] MEDS ORDERED: Bumetanide 1 MG/4 ML MDV IVPUSH SCH (14:00)
[2024-11-05] MEDS: Insulin Glarg,Human.Rec.Analog 100 Unit/ML 10 ML Vial SUBCUT SCH (20:30)
[2024-11-05] MEDS ORDERED: Insulin Glarg,Human.Rec.Analog 100 Unit/ML 10 ML Vial SUBCUT SCH (21:00)
[2024-11-06 06:09] LABS: HEMATOCRIT 38.3 % (40.0-54.0); HEMOGLOBIN 12.7 g/dL (14.0-18.0); MEAN CORPUSCULAR HEMOGLOBIN 28.8 pg (27.0-34.0); MEAN CORPUSCULAR HGB CONC 33.2 g/dL (33.0-35.0); MEAN CORPUSCULAR VOLUME 86.8 fL (80-100); PLATELET COUNT,PLT 227 10^3/uL (150-450); RED BLOOD CELL COUNT 4.41 10^6/uL (4.6-6.2); WHITE BLOOD CELL COUNT,WBC 6.7 10^3/uL (5.0-10.0)
[2024-11-06 06:36] LABS: A/G RATIO 0.67; ALBUMIN 3.1 g/dL (3.4-5.0); ANION GAP 14.2 mEq/L (7-13); BILIRUBIN TOTAL 0.4 mg/dL (0.2-1.0); BUN/CREATININE RATIO 29.5 (No establ ref range); CALCIUM 8.7 mg/dL (8.5-10.1); CREATININE 1.9 mg/dL (0.70-1.30); EST CRCL DRUG DOSING (CG) 27.75 mL/min; MAGNESIUM 1.8 mg/dL (1.8-2.4); POTASSIUM,K 4.2 mmol/L (3.5-5.1); PROTEIN TOTAL,TP 7.7 g/dL (6.4-8.2)
[2024-11-06 06:47] LABS: LYMPHOCYTES PERCENT MAN 29 % (20-50); MONOCYTES PERCENT MAN 14 % (2-8); SEG NEUTROPHILS PERCENT MAN 57 % (42-75)
[2024-11-06] MEDS: Potassium Chloride 10 MEQ Tab.ER PO ONE (11:03)
[2024-11-06] MEDS: Bumetanide 1 MG/4 ML MDV IVPUSH ONE (11:04)
[2024-11-06] MEDS ORDERED: Polyethylene Glycol 3350 Powder 17 GM Packet PO PRN (13:01)
[2024-11-06] MEDS ORDERED: Sennosides/Docusate Sodium 50-8.6 MG Tab PO PRN (13:02)
[2024-11-06] MEDS ORDERED: Docusate Sodium 100 MG Cap PO PRN (13:02)
== END 2024-11-06 15:57 | disposition swing bed (61) | DRG 683 ==
LOC: DL.ED 16:23 → DL.MS 17:42
PROVIDERS: ADMIT Internal Medicine; ATTEND Internal Medicine
DX: S00.91XA Abrasion of unspecified part of head, initial encounter (principal); E87.1 Hypo-osmolality and hyponatremia; N17.9 Acute kidney failure, unspecified; N13.9 Obstructive and reflux uropathy, unspecified; H54.7 Unspecified visual loss; N39.0 Urinary tract infection, site not specified; E88.09 Other disorders of plasma-protein metabolism, not elsewhere classified; N40.0 Benign prostatic hyperplasia without lower urinary tract symptoms; E11.22 Type 2 diabetes mellitus with diabetic chronic kidney disease; D63.8 Anemia in other chronic diseases classified elsewhere; N18.9 Chronic kidney disease, unspecified; I10 Essential (primary) hypertension; Z98.890 Other specified postprocedural states; Z87.891 Personal history of nicotine dependence; E11.9 Type 2 diabetes mellitus without complications; Z79.899 Other long term (current) drug therapy; Z79.4 Long term (current) use of insulin; W19.XXXA Unspecified fall, initial encounter
CPT/HCPCS: 36415; 70450; 74176; 80053; 81001; 83880; 85025; 87086; 87088; 87186; 96374; 99284; 99285; J0696; 51798; 71046; 82728; 82947; 83036; 83540; 83550; 83735; 84132; 85610; 85730; 97140-GO; 97161-GP; 97165-GO; 97530-GO; 99222; 99232; 99238; A4320; A9270-GY; J0295; J1650; J1815-GY; J3490

== ENCOUNTER 2024-11-06 12:15 | Inpatient (IN) | payer MEDICARE, MEDICAID ==
[2024-11-06] MEDS ORDERED: Glucagon,Human Recombinant 1 MG Vial IM PRN ×2 (15:02)
[2024-11-06] MEDS ORDERED: 50% Dextrose in Water 50 ML Syringe IVPUSH PRN (15:02)
[2024-11-06] MEDS ORDERED: Acetaminophen 325 MG Tab PO PRN (15:02)
[2024-11-06] MEDS ORDERED: Sennosides/Docusate Sodium 50-8.6 MG Tab PO PRN (15:02)
[2024-11-06] MEDS ORDERED: Sodium Chloride 0.9% 10 ML Syringe FLUSH PRN ×2 (15:02)
[2024-11-06] MEDS ORDERED: Albuterol/Ipratropium 3.0-0.5 MG/3 ML Neb Soln NEB PRN (15:02)
[2024-11-06] MEDS ORDERED: Polyethylene Glycol 3350 Powder 17 GM Packet PO PRN (15:02)
[2024-11-06] MEDS ORDERED: Docusate Sodium 100 MG Cap PO PRN (15:02)
[2024-11-06] MEDS ORDERED: Ondansetron 4 MG Tab.DIS PO PRN (15:05)
[2024-11-06] MEDS: Insulin Lispro 100 Units/ML 3 ML Vial SUBCUT SCH (17:26)
[2024-11-06] MEDS ORDERED: Insulin Glarg,Human.Rec.Analog 100 Unit/ML 10 ML Vial SUBCUT SCH (21:00)
[2024-11-06] MEDS ORDERED: Sodium Chloride 0.9% 10 ML Syringe FLUSH SCH (21:00)
[2024-11-06] MEDS: Insulin Glarg,Human.Rec.Analog 100 Unit/ML 10 ML Vial SUBCUT SCH (21:19)
[2024-11-06] MEDS: Melatonin 3 MG Tab PO PRN (21:21)
[2024-11-06] MEDS: Ampicillin/Sulbactam Na 3 GM in Sodium Chloride 0.9% 100 ML IV SCH (21:22)
[2024-11-06] MEDS: Sodium Chloride 0.9% 10 ML Syringe FLUSH SCH (21:23)
[2024-11-06] MEDS: Nystatin Topical Powder 60 GM Bottle TOP SCH (21:26)
[2024-11-07 07:27] LABS: ALBUMIN 2.9 g/dL (3.4-5.0); ANION GAP 10.8 mEq/L (7-13); BILIRUBIN TOTAL 0.5 mg/dL (0.2-1.0); BUN/CREATININE RATIO 29.4 (No establ ref range); CALCIUM 8.7 mg/dL (8.5-10.1); CREATININE 1.87 mg/dL (0.70-1.30); EST CRCL DRUG DOSING (CG) 28.19 mL/min; MAGNESIUM 1.8 mg/dL (1.8-2.4); POTASSIUM,K 3.8 mmol/L (3.5-5.1); PROTEIN TOTAL,TP 7.2 g/dL (6.4-8.2)
[2024-11-07 07:30] LABS: A/G RATIO 0.67
[2024-11-07 07:35] LABS: HEMOGLOBIN 12.3 g/dL (14.0-18.0); MEAN CORPUSCULAR HEMOGLOBIN 29.8 pg (27.0-34.0); MEAN CORPUSCULAR HGB CONC 34.2 g/dL (33.0-35.0); MEAN CORPUSCULAR VOLUME 87.2 fL (80-100); PLATELET COUNT,PLT 222 10^3/uL (150-450); RED BLOOD CELL COUNT 4.13 10^6/uL (4.6-6.2); WHITE BLOOD CELL COUNT,WBC 7.3 10^3/uL (5.0-10.0)
[2024-11-07] MEDS: Pantoprazole 40 MG Tab.CR PO SCH (07:44)
[2024-11-07 08:05] LABS: EOSINOPHILS PERCENT MAN 1 % (1-3); LYMPHOCYTES PERCENT MAN 36 % (20-50); MONOCYTES PERCENT MAN 19 % (2-8); SEG NEUTROPHILS PERCENT MAN 44 % (42-75)
[2024-11-07] MEDS: Finasteride 5 MG Tab PO SCH (08:33)
[2024-11-07] MEDS: Empagliflozin 10 MG Tab PO SCH (08:33)
[2024-11-07] MEDS: Enoxaparin 30 MG/0.3 ML Syringe SUBCUT SCH (08:34)
[2024-11-07] MEDS: Tamsulosin 0.4 MG Cap.ER PO SCH (08:42)
[2024-11-07] MEDS: Bumetanide 1 MG/4 ML MDV IVPUSH ONE (10:34)
[2024-11-07] MEDS: Spironolactone 25 MG Tab PO SCH (10:34)
[2024-11-07] MEDS: Losartan 50 MG Tab PO SCH (17:56)
[2024-11-07] MEDS: Insulin Glarg,Human.Rec.Analog 100 Unit/ML 10 ML Vial SUBCUT SCH (21:59)
[2024-11-08 06:36] LABS: HEMATOCRIT 36.3 % (40.0-54.0); HEMOGLOBIN 11.8 g/dL (14.0-18.0); MEAN CORPUSCULAR HEMOGLOBIN 28.3 pg (27.0-34.0); MEAN CORPUSCULAR HGB CONC 32.5 g/dL (33.0-35.0); MEAN CORPUSCULAR VOLUME 87.1 fL (80-100); PLATELET COUNT,PLT 250 10^3/uL (150-450); RED BLOOD CELL COUNT 4.17 10^6/uL (4.6-6.2)
[2024-11-08 06:57] LABS: ALBUMIN 2.9 g/dL (3.4-5.0); ANION GAP 13.6 mEq/L (7-13); BILIRUBIN TOTAL 0.4 mg/dL (0.2-1.0); BUN/CREATININE RATIO 27.9 (No establ ref range); CALCIUM 8.5 mg/dL (8.5-10.1); CREATININE 2.01 mg/dL (0.70-1.30); EST CRCL DRUG DOSING (CG) 26.23 mL/min; MAGNESIUM 1.9 mg/dL (1.8-2.4); POTASSIUM,K 3.6 mmol/L (3.5-5.1)
[2024-11-08 07:04] LABS: A/G RATIO 0.71
[2024-11-08 07:45] LABS: EOSINOPHILS PERCENT MAN 1 % (1-3); LYMPHOCYTES PERCENT MAN 38 % (20-50); MONOCYTES PERCENT MAN 20 % (2-8); SEG NEUTROPHILS PERCENT MAN 41 % (42-75)
[2024-11-08] MEDS: Bumetanide 1 MG Tab PO ONE (08:37)
[2024-11-08] MEDS: Potassium Chloride 10 MEQ Tab.ER PO ONE (08:38)
[2024-11-08] MEDS: Losartan 50 MG Tab PO SCH (22:05)
[2024-11-09 06:48] LABS: ANION GAP 12.9 mEq/L (7-13); CALCIUM 8.7 mg/dL (8.5-10.1); CREATININE 1.98 mg/dL (0.70-1.30); EST CRCL DRUG DOSING (CG) 26.63 mL/min; POTASSIUM,K 3.9 mmol/L (3.5-5.1)
[2024-11-09] MEDS: Bumetanide 1 MG Tab PO SCH (11:59)
[2024-11-09] MEDS: Potassium Chloride 10 MEQ Tab.ER PO SCH (12:00)
[2024-11-10 06:25] LABS: HEMOGLOBIN 12.1 g/dL (14.0-18.0); MEAN CORPUSCULAR HEMOGLOBIN 28.5 pg (27.0-34.0); MEAN CORPUSCULAR HGB CONC 32.7 g/dL (33.0-35.0); MEAN CORPUSCULAR VOLUME 87.1 fL (80-100); PLATELET COUNT,PLT 253 10^3/uL (150-450); RED BLOOD CELL COUNT 4.25 10^6/uL (4.6-6.2); WHITE BLOOD CELL COUNT,WBC 7.5 10^3/uL (5.0-10.0)
[2024-11-10 06:44] LABS: ALBUMIN 2.9 g/dL (3.4-5.0); ANION GAP 14.8 mEq/L (7-13); BILIRUBIN TOTAL 0.4 mg/dL (0.2-1.0); BUN/CREATININE RATIO 31.4 (No establ ref range); CALCIUM 8.9 mg/dL (8.5-10.1); CREATININE 1.75 mg/dL (0.70-1.30); EST CRCL DRUG DOSING (CG) 30.13 mL/min; MAGNESIUM 1.9 mg/dL (1.8-2.4); POTASSIUM,K 3.8 mmol/L (3.5-5.1)
[2024-11-10 06:49] LABS: A/G RATIO 0.71
[2024-11-10 06:58] LABS: EOSINOPHILS PERCENT MAN 1 % (1-3); LYMPHOCYTES PERCENT MAN 29 % (20-50); MONOCYTES PERCENT MAN 18 % (2-8); SEG NEUTROPHILS PERCENT MAN 52 % (42-75)
[2024-11-11 06:38] LABS: HEMOGLOBIN 12.3 g/dL (14.0-18.0); MEAN CORPUSCULAR HGB CONC 33.2 g/dL (33.0-35.0); MEAN CORPUSCULAR VOLUME 87.3 fL (80-100); PLATELET COUNT,PLT 255 10^3/uL (150-450); RED BLOOD CELL COUNT 4.24 10^6/uL (4.6-6.2)
[2024-11-11 07:03] LABS: ALBUMIN 2.9 g/dL (3.4-5.0); ANION GAP 14.9 mEq/L (7-13); BILIRUBIN TOTAL 0.3 mg/dL (0.2-1.0); BUN/CREATININE RATIO 30.4 (No establ ref range); CALCIUM 8.8 mg/dL (8.5-10.1); CREATININE 1.84 mg/dL (0.70-1.30); EST CRCL DRUG DOSING (CG) 28.65 mL/min; MAGNESIUM 1.9 mg/dL (1.8-2.4); POTASSIUM,K 3.9 mmol/L (3.5-5.1); PROTEIN TOTAL,TP 7.1 g/dL (6.4-8.2)
[2024-11-11 07:09] LABS: A/G RATIO 0.69
[2024-11-11 07:37] LABS: EOSINOPHILS PERCENT MAN 2 % (1-3); LYMPHOCYTES PERCENT MAN 32 % (20-50); MONOCYTES PERCENT MAN 16 % (2-8); SEG NEUTROPHILS PERCENT MAN 50 % (42-75)
[2024-11-11] MEDS: Bumetanide 1 MG Tab PO SCH (08:20)
[2024-11-11] MEDS ORDERED: Metoprolol Succinate 25 MG Tab.ER PO SCH (13:15)
[2024-11-11] MEDS: Metoprolol Succinate 25 MG Tab.ER PO SCH (21:15)
[2024-11-11] MEDS: Insulin Glarg,Human.Rec.Analog 100 Unit/ML 10 ML Vial SUBCUT SCH (21:16)
[2024-11-12] MEDS: Insulin Glarg,Human.Rec.Analog 100 Unit/ML 10 ML Vial SUBCUT SCH (20:59)
[2024-11-13 07:09] LABS: ANION GAP 14.2 mEq/L (7-13); CALCIUM 8.8 mg/dL (8.5-10.1); CREATININE 1.84 mg/dL (0.70-1.30); EST CRCL DRUG DOSING (CG) 28.65 mL/min; MAGNESIUM 2.1 mg/dL (1.8-2.4); POTASSIUM,K 4.2 mmol/L (3.5-5.1)
[2024-11-13] MEDS: Bumetanide 1 MG Tab PO SCH (08:24)
[2024-11-13] MEDS: Potassium Chloride 10 MEQ Tab.ER PO ONE (17:40)
[2024-11-13] MEDS: Bumetanide 1 MG Tab PO ONE (17:40)
[2024-11-13] MEDS: Insulin Glarg,Human.Rec.Analog 100 Unit/ML 10 ML Vial SUBCUT SCH (21:59)
[2024-11-18 07:14] LABS: HEMATOCRIT 38.8 % (40.0-54.0); HEMOGLOBIN 13.1 g/dL (14.0-18.0); MEAN CORPUSCULAR HEMOGLOBIN 29.1 pg (27.0-34.0); MEAN CORPUSCULAR HGB CONC 33.8 g/dL (33.0-35.0); MEAN CORPUSCULAR VOLUME 86.2 fL (80-100); PLATELET COUNT,PLT 277 10^3/uL (150-450); WHITE BLOOD CELL COUNT,WBC 8.5 10^3/uL (5.0-10.0)
[2024-11-18 07:23] LABS: ANION GAP 12.4 mEq/L (7-13); CALCIUM 9.3 mg/dL (8.5-10.1); CREATININE 2.02 mg/dL (0.70-1.30); EST CRCL DRUG DOSING (CG) 26.1 mL/min; POTASSIUM,K 4.4 mmol/L (3.5-5.1)
[2024-11-18 07:46] LABS: LYMPHOCYTES PERCENT MAN 35 % (20-50); MONOCYTES PERCENT MAN 17 % (2-8); SEG NEUTROPHILS PERCENT MAN 48 % (42-75)
== END 2024-11-20 10:10 | DRG 683 ==
LOC: DL.MS 15:04
PROVIDERS: ADMIT Student in an Organized Health Care Education/Training Program; ATTEND Internal Medicine
DX: N17.9 Acute kidney failure, unspecified (principal); N13.8 Other obstructive and reflux uropathy; N39.0 Urinary tract infection, site not specified; N13.9 Obstructive and reflux uropathy, unspecified; I12.9 Hypertensive chronic kidney disease with stage 1 through stage 4 chronic kidney disease, or unspecified chronic kidney disease; R53.1 Weakness; B95.2 Enterococcus as the cause of diseases classified elsewhere; D63.8 Anemia in other chronic diseases classified elsewhere; N40.1 Benign prostatic hyperplasia with lower urinary tract symptoms; E11.22 Type 2 diabetes mellitus with diabetic chronic kidney disease; N18.9 Chronic kidney disease, unspecified; H54.7 Unspecified visual loss; N40.0 Benign prostatic hyperplasia without lower urinary tract symptoms; Z87.891 Personal history of nicotine dependence; Z79.4 Long term (current) use of insulin; Z79.899 Other long term (current) drug therapy; Z98.890 Other specified postprocedural states; Z46.6 Encounter for fitting and adjustment of urinary device
CPT/HCPCS: 36415; 80048; 80053; 82947; 83735; 84132; 85025; 97110-GO; 97110-GP; 97116-GP; 97140-GO; 97161-GP; 97165-GO; 97530-GO; 97530-GP; 97535-GO; 99306; 99308; 99309; 99316; A9270-GY; J0295; J1650; J1815-GY; J3490

== ENCOUNTER 2024-12-28 15:24 | Emergency (ER) | payer MEDICAID, MEDICARE ==
[2024-12-28] MEDS: Lidocaine 2% Jelly 10 ML Urojet MUCMEM ONE (15:40)
== END 2024-12-28 16:05 | disposition home or self-care (01) ==
LOC: DL.ED 15:24
DX: T83.9XXA Unspecified complication of genitourinary prosthetic device, implant and graft, initial encounter (principal); I10 Essential (primary) hypertension; E11.9 Type 2 diabetes mellitus without complications; Z79.4 Long term (current) use of insulin; Z79.899 Other long term (current) drug therapy
CPT/HCPCS: 51702; 99283; A9270-GY

== ENCOUNTER 2025-01-02 21:47 | Emergency (ER) | payer MEDICARE ==
[2025-01-02 22:16] LABS: APPEARANCE,URINE CLOUDY (CLEAR); BILIRUBIN,URINE NEGATIVE (NEGATIVE); COLOR,URINE YELLOW (YELLOW); GLUCOSE,URINE 500 (NEGATIVE); KETONES,URINE NEGATIVE (NEGATIVE); LEUKOCYTE ESTERASE,URINE SMALL (NEGATIVE); NITRITE,URINE POSITIVE (NEGATIVE); OCCULT BLOOD,URINE MODERATE (NEGATIVE); PROTEIN,URINE 100 (NEGATIVE); UROBILINOGEN,URINE 0.2 mg/dL (0.2-1.0)
[2025-01-02 22:25] LABS: BACTERIA,URINE FEW /HPF (0-FEW/HPF); EPITHELIAL CELLS,URINE FEW /HPF (NOT SEEN); MUCUS,URINE FEW /LPF (NOT SEEN); WBC,URINE PACKED /HPF (0-5/HPF)
[2025-01-02] MEDS: Ertapenem 1 GM Vial IM ONE (22:41)
== END 2025-01-02 23:06 | disposition home or self-care (01) ==
LOC: DL.ED 21:47
DX: T83.511A Infection and inflammatory reaction due to indwelling urethral catheter, initial encounter (principal); I10 Essential (primary) hypertension; E11.9 Type 2 diabetes mellitus without complications; Z79.899 Other long term (current) drug therapy; Z79.4 Long term (current) use of insulin
CPT/HCPCS: 51702; 81001; 87086; 96372; 99283; A4320; J1335

== ENCOUNTER 2025-01-05 23:49 | Emergency (ER) | payer MEDICARE, OTHER ==
[2025-01-05] MEDS: Lidocaine 2% Jelly 10 ML Urojet ONE (23:56)
[2025-01-05] MEDS ORDERED: Lidocaine 2% Jelly 10 ML Urojet MUCMEM ONE (23:56)
== END 2025-01-06 01:08 | disposition home or self-care (01) ==
LOC: DL.ED 23:49
DX: T83.9XXA Unspecified complication of genitourinary prosthetic device, implant and graft, initial encounter (principal); I10 Essential (primary) hypertension; E11.9 Type 2 diabetes mellitus without complications; Z79.4 Long term (current) use of insulin; Z79.899 Other long term (current) drug therapy
CPT/HCPCS: 51702; 99283; 99284; A9270